=== PATIENT | female | born 1990 | race Caucasian/White ===

== ENCOUNTER 2023-10-01 20:47 | Outpatient (REF) | payer MEDICAID, SELFPAY ==
[2023-10-06 16:07] LABS: Age Gdln ACOG Testing Note (.); HPV Aptima Negative (Negative); IGP, Aptima HPV, rfx 16/18,45 Note (.)
== END 2023-10-01 20:48 | disposition home or self-care (01) ==
LOC: LAB 20:47
PROVIDERS: PCP Family Medicine; Visit Provider Obstetrics & Gynecology
DX: Z01.419 Encounter for gynecological examination (general) (routine) without abnormal findings (principal)
CPT/HCPCS: 87624; G0145

== ENCOUNTER 2023-10-08 12:54 | Outpatient (OUT) | payer MEDICAID, SELFPAY ==
--- NOTE | 2023-10-08 12:57 | US_ITS ---
The [address] [address] Patient Name: CLAUDIA CARVAJAL MRN: [id number] date: 1990 Sex: F Assigned Patient Location: [facility] Current Patient Location: [facility] Accession/Order Number: [id number] Exam Date: 10/08/2023 12:58 Report Date: 10/08/2023 15:59 At the request of: MELVA FONTANA Procedure: US pelvis w/ transvaginal EXAMINATION: US pelvis w/ transvaginal HISTORY: MENORRHAGIA, PELVIC PAIN COMPARISON: No relevant comparison available. FINDINGS: The uterus is normal in size, contour and myometrial echotexture measuring 8.8 x 3.7 x 5.8 cm, anteverted, anteflexed. Identified within the endometrial cavity is linear hyperechogenicity with ringdown artifact consistent with an IUD. The endometrium measures 6 mm, normal. The right ovary measures 3.6 x 1.7 x 3.8 cm. Normal color and Doppler flow The left ovary is normal measuring 4.3 x 2.4 x 3.9 cm. Normal color Doppler flow. Area of hypoechogenicity measuring 1.9 x 1.8 x 1.4 cm. Complex cyst versus endometrioma No free fluid US/US pelvis w/ transvaginal IMPRESSION: Normally positioned IUD Electronically authenticated by: ARAM ANSARI Date: 10/08/2023 15:59
--- OUTSIDE RECORDS SUMMARY | 2023-10-08 13:19 | XMS_ITS | CCD ---
Author Name Unknown Address [address] [place] [address] Organization [facility] Care Team Providers Care Yarn Wrapper Name Role Phone Neelam Singleton Unavailable DR NAZANIN BROWN Admitting Unavailable KEVIN, DR BACK Consulting Unavailable KEVIN, DR BCAK Attending Unavailable MISC, DR PLUMMER Primary Care Unavailable TRINIDADASICristopher, DR YIP Attending Unavailable MISC, DR PLUMMER Primary Care Unavailable MEREDITH, DR YIP Admitting Unavailable MEREDITH, DR YIP Consulting Unavailable MELVA FONTANA Attending Unavailable Allergies Allergy Classification Reported Allergen(s) Allergy Type Date of Onset Reaction(s) Facility (2 sources) Bacitracin / Neomycin / Polymyxin B; Translations: [Neosporin] Drug Allergy 08-18-2013 [facility] Repository Problems Active Problems Problem Classification Problem Date Documented Date Episodic/Chronic Immunizations and screening for infectious disease (2 sources) Contact with and (suspected) exposure to other viral communicable diseases; Translations: [Encounter for screening for human papillomavirus (HPV)] Onset: 05-02-2021 Resolved: 05-02-2021 Episodic Nausea and vomiting (3 sources) Nausea with vomiting, unspecified; Translations: [NAUSEA WITH VOMITING UNSPECIFIED] Onset: 05-11-2022 Episodic Noninfectious gastroenteritis (1 source) Noninfective gastroenteritis and colitis, unspecified; Translations: [NONINFECTIVE GE AND COLITIS UNS] Onset: 05-15-2022 Episodic Other screening for suspected conditions (not mental disorders or infectious disease) (4 sources) Encounter for screening for malignant neoplasm of cervix; Translations: [ENC SCREENING MALIG NEOPLASM CERV] Onset: 05-23-2022 Episodic Substance-related disorders (1 source) Nicotine dependence, cigarettes, uncomplicated; Translations: [NICOTINE DEPEND CIGARETTES UNCOMP] Onset: 05-15-2022 Chronic Past or Other Problems Problem Classification Problem Date Documented Da te Episodic/Chronic Other upper respiratory infections (1 source) Acute upper respiratory infection, unspecified; Translations: [Viral upper respiratory illness J06.9] Onset: 05-02-2021 Resolved: 05-02-2021 Episodic Results Test Name Value Interpretation Reference Range Facility PAP ACOG PANEL 2: 21 to 29on 05-29-2022 . . Normal [facility] Comment on above: Result Comment: Perf ormed at: BA Performed By: #### [id number] #### [facility] [address] [address] [address] Chi Melendrez Age Gdln ACOG Testing [facility] Comment on above: Performed By: #### [id number] #### [facility] [address] [place] [address] Dr. Chi Melendrez DIAGNOSIS: Comment [facility] Comment on above: Result Comment: NEGA TIVE FOR INTRAEPITHELIAL LESION OR MALIGNANCY. Performed at: BA Performed By: #### [id number] #### [facility] [address] [place] [address] Dr. Chi Melendrez Methodology: Comment [facility] Comment on above: Result Comment: This liquid based ThinPrep(R) pap test was screened with the use of an image guided system. Performed at: WB Performed By: #### [id number] #### [facility] [address] [place] [address] Dr. Chi Melendrez Note: Comment [facility] Comment on above: Result Comment: The Pap smear is a screening test designed to aid in the detection of premalignant and malignant conditions of the uterine cervix. It is not a diagnostic procedure and should not be used as the sole means of detecting cervical cancer. Both false-positive and false-negative reports do occur. . Performed at: WB Performed By: #### [id number] #### [facility] [address] [place] [address] Dr. Chi Melendrez Performed by: Comment Normal [facility] Comment on above: Result Comment: Cheo Nance, Sports Marketing Specialist (ASCP) Performed at: BA Performed By: #### [id number] #### [facility] [address] [place] [address] Dr. Chi Melendrez Reflex Criteria: Comment Normal [facility] Comment on above: Result Comment: The HPV DNA reflex criteria were not met with this specimen result therefore, no HPV testing was performed. . Performed at: BA Performed By: #### [id number] #### [facility] [address] [place] [address] Dr. Chi Melendrez Specimen adequacy: Comment Normal [facility] Comment on above: Result Comment: Sati sfactory for evaluation. Endocervical and/or squamous metaplastic cells (endocervical component) are present. Performed at: BA Performed By: #### [id number] #### [facility] [address] [place] [address] Dr. Chi Melendrez AMYLASEon 05-11-2022 Amylase [Catalytic activity/Vol] 72 U/L Normal 25-115 [facility] Comment on above: Performed By: #### C MP, CATHERINE, LIPA #### [facility] [address] [place] [address] Dr. Chi Melendrez CBC AUTO DIFFon 05-11-2022 BASO # 0.0 103/ul Normal 0.0-0.1 [facility] Comment on above: Performed By: #### C BC #### [facility] [address] [place] [address] Dr. Chi Melendrez Basophils/100 WBC (Bld) 0.3 % Normal 0.2-2.0 [facility] Comment on above: Performed By: #### C BC #### [facility] [address] [place] [address] Dr. Chi Melendrez EO # 0.0 103/ul Normal 0.0-0.7 [facility] Comment on above: Performed By: #### C BC #### [facility] [address] [place] [address] Dr. Chi Melendrez Eosinophils/100 WBC (Bld) 0.2 % Critically low 0.9-7.0 [facility] Comment on above: Performed By: #### C BC #### [facility] [address] [place] [address] Dr. Chi Melendrez Erythrocyte distribution width (RBC) [Ratio] 12.4 % Normal 11.0-15.0 [facility] Comment on above: Performed By: #### C BC #### [facility] [address] [place] [address] Dr. Chi Melendrez Hematocrit (Bld) [Volume fraction] 39.3 % Normal 36.0-48.0 [facility] Comment on above: Performed By: #### C BC #### [facility] [address] [place] [address] Dr. Chi Melendrez Hemoglobin (Bld) [Mass/Vol] 13.1 g/dL Normal 12.0-16.0 [facility] Comment on above: Performed By: #### C BC #### [facility] [address] [place] [address] Dr. Chi Melendrez IG # 0.03 10e3/ul Normal 0.00-0.03 [facility] Comment on above: Performed By: #### C BC #### [facility] [address] [place] [address] Dr. Chi Melendrez IG % 0.3 % Normal 0.0-0.5 [facility] Comment on above: Performed By: #### C BC #### [facility] [address] [place] [address] Dr. Chi Melendrez LYMPH # 1.3 103/ul Normal 1.2-3.8 [facility] Comment on above: Performed By: #### C BC #### [facility] [address] [place] [address] Dr. Chi Melendrez Lymphocytes/100 WBC (Bld) 10.5 % Critically low 20.5-60.0 [facility] Comment on above: Performed By: #### C BC #### [facility] [address] [place] [address] Dr. Chi Melendrez MANUAL DIFF REQ NO Normal [facility] Comment on above: Performed By: #### C BC #### [facility] [address] [place] [address] Dr. Chi Melendrez MCH (RBC) [Entitic mass] 29.8 pg Normal 26.7-34.0 [facility] Comment on above: Performed By: #### C BC #### [facility] [address] [address] [address] Chi Melendrez MCHC (RBC) [Mass/Vol] 33.3 g/dL Normal 29.9-35.2 [facility] Comment on above: Performed By: #### C BC #### [facility] [address] [place] [address] Dr. Chi Melendrez MCV (RBC) [Entitic vol] 89.5 fL Normal 81.0-99.0 [facility] Comment on above: Performed By: #### C BC #### [facility] [address] [place] [address] Dr. Chi Melendrez MONO # 0.6 103/ul Normal 0.3-0.8 [facility] Comment on above: Performed By: #### C BC #### [facility] [address] [place] [address] Dr. Chi Melendrez Monocytes/100 WBC (Bld) 4.6 % Normal 1.7-12.0 [facility] Comment on above: Performed By: #### C BC #### [facility] [address] [place] [address] Dr. Chi Melendrez NEUT # 10.0 103/ul Critically high 1.4-6.5 [facility] Comment on above: Performed By: #### C BC #### [facility] [address] [place] [address] Dr. Chi Melendrez Neutrophils/100 WBC (Bld) 84.1 % Critically high 43.0-75.0 [facility] Comment on above: Performed By: #### C BC #### [facility] [address] [place] [address] Dr. Chi Melendrez Platelet mean volume (Bld) [Entitic vol] 11.5 fL Normal 9.5-13.5 [facility] Comment on above: Performed By: #### C BC #### [facility] [address] [place] [address] Dr. Chi Melendrez PLT 268 103/ul Normal 150-450 [facility] Comment on above: Performed By: #### C BC #### [facility] [address] [place] [address] Dr. Chi Melendrez RBC 4.39 106/ul Normal 4.20-5.40 [facility] Comment on above: Performed By: #### C BC #### [facility] [address] [place] [address] Dr. Chi Melendrez WBC 11.9 103/ul Critically high 4.0-11.0 [facility] Comment on above: Performed By: #### C BC #### [facility] [address] [place] [address] Dr. Chi Melendrez LIPASEon 05-11-2022 Lipase [Catalytic activity/Vol] 101.0 U/L Normal 73.0-393.0 [facility] Comment on above: Performed By: #### C MP CATHERINE, LIPA #### [facility] [address] [place] [address] Dr. Chi Melendrez PROF 14(COMP METB)on 022 Albumin [Mass/Vol] 4.2 g/dL Normal 3.4-5.0 [facility] Comment on above: Performed By: #### C MP CATHERINE, LIPA #### [facility] [address] [place] [address] Dr. Chi Melendrez Albumin/Globulin [Mass ratio] 1.2 {ratio} Normal [facility] Comment on above: Performed By: #### C MP CATHERINE, LIPA #### [facility] [address] [place] [address] Dr. Chi Melendrez ALP [Catalytic activity/Vol] 67 U/L Normal 46-116 [facility] Comment on above: Performed By: #### C MP, CATHERINE, LIPA #### [facility] [address] [place] [address] Dr. Chi Melendrez ALT [Catalytic activity/Vol] 17 U/L Normal 14-59 [facility] Comment on above: Performed By: #### C MP CATHERINE, LIPA #### [facility] [address] [place] [address] Dr. Chi Melendrez Anion gap [Moles/Vol] 10.1 mmol/L Normal [facility] Comment on above: Performed By: #### C CATHERINE HYATT LIPA #### [facility] [address] [address] [address] Chi Melendrez AST [Catalytic activity/Vol] 13 U/L Critically low 15-37 [facility] Comment on above: Performed By: #### C CATHERINE HYATT LIPA #### [facility] [address] [address] [address] Chi Melendrez Bilirubin [Mass/Vol] 0.5 mg/dL Normal 0.2-1.0 [facility] Comment on above: Performed By: #### C CATHERINE HYATT LIPA #### [facility] [address] [address] [address] Chi Melendrez Calcium [Mass/Vol] 9.2 mg/dL Normal 8.5-10.1 [facility] Comment on above: Performed By: #### C CATHERINE HYATT LIPA #### [facility] [address] [address] [address] Chi Melendrez Chloride [Moles/Vol] 104 mmol/L Normal 98-107 [facility] Comment on above: Performed By: #### C CATHERINE HYATT LIPA #### [facility] [address] [address] [address] Chi Melendrez CO2 [Moles/Vol] 27.8 mmol/L Normal 21.0-32.0 [facility] Comment on above: Performed By: #### C CATHERINE HYATT, LIPA #### [facility] [address] [address] [address] Chi Melendrez Creatinine [Mass/Vol] 0.75 mg/dL Normal 0.55-1.02 [facility] Comment on above: Performed By: #### C CATHERINE HYATT, LIPA #### [facility] [address] [address] [address] Chi Melendrez EGFR-AF LIBYAN >60 Normal >=60 [facility] Comment on above: Performed By: #### C CATHERINE HYATT LIPA #### [facility] [address] [address] [address] Chi Melendrez EGFR-NON AF LIBYAN >60 Normal >=60 [facility] Comment on above: Performed By: #### C MP, CATHERINE, LIPA #### [facility] [address] [address] [address] Chi Melendrez Globulin (S) [Mass/Vol] 3.4 g/dL Normal [facility] Comment on above: Performed By: #### C MP, CATHERINE, LIPA #### [facility] [address] [address] [address] Chi Melendrez Glucose [Mass/Vol] 117 mg/dL Critically high 74-106 [facility] Comment on above: Performed By: #### C MP, CATHERINE, LIPA #### [facility] [address] [place] [address] Dr. Chi Melendrez Potassium [Moles/Vol] 3.9 mmol/L Normal 3.5-5.1 [facility] Comment on above: Performed By: #### C MP, CATHERINE, LIPA #### [facility] [address] [address] [address] Chi Melendrez Protein [Mass/Vol] 7.6 g/dL Normal 6.4-8.2 [facility] Comment on above: Performed By: #### C MP, CATHERINE, LIPA #### [facility] [address] [address] [address] Chi Melendrez Sodium [Moles/Vol] 138 mmol/L Normal 136-145 [facility] Comment on above: Performed By: #### C MP, CATHERINE, LIPA #### [facility] [address] [address] [address] Chi Melendrez Urea nitrogen [Mass/Vol] 16.0 mg/dL Normal 7.0-18.0 [facility] Comment on above: Performed By: #### C MP, CATHERINE, LIPA #### [facility] [address] [address] [address] Chi Melendrez Urea nitrogen/Creatini ne [Mass ratio] 21.3 mg/mg Normal [facility] Comment on above: Performed By: #### C CATHERINE HYATT LIPA #### [facility] [address] [address] [address] Chi ESTRELLA Quick Testingon 2020 Result Negative [facility] Other Vital Signs Date Time Vital Sign Value Performing Clinician Facility 05-02-2021 14:00-0400 Body height 157.48 cm Neelam Singleton Other [facility] Other 05-02-2021 14:00-0400 Body mass index (BMI) [Ratio] 24.69 kg/m2 Neelam Singleton Other [facility] Other 05-02-2021 14:00-0400 Body temperature 98.7 [degF] Neelam Singleton Other [facility] Other 05-02-2021 14:00-0400 Body weight 61.24 kg Neelam Singleton Other [facility] Other 05-02-2021 14:00-0400 SaO2% (BldA) [Mass fraction] 97 % Neelam Singleton Other [facility] Other Encounters Encounter Date Encounter Type Care Provider Facility Start: 09-03-2023 End: 09-03-2023 ambulatory MELVA FONTANA Not Available Start: 05-23-2022 End: 05-23-[address] PHI HARPER Facility:[facility] Start: 05-11-2022 End: 05-11-[address] NAZANIN BROWN Facility:[facility] Start: 05-02-2021 Office outpatient vi sit [address] [facility] Payers Date Payer Category Payer Unknown [id number] [id number] [id number] 1990 Unknown [id number] [id number] [id number] 1990 Unknown [id number] [id number] [id number] 1957 Medicaid [id number] Unknown [id number]. [id number] Social History Date Type Detail Facility Unknown if ever smoked [facility] Other Sex Assigned At Sex Assigned At Bir th [facility] Other Evaluation note 05-02-2021 Note Date & Type Note Facility 05-02-2021 Evaluation note Encounter Date Diagnosis Assessment Notes Apr, Contact with and (suspected) exposure to other viral communicable diseases (ICD-10 - Z20.828) Apr, Viral upper respiratory illness (ICD-10 - J06.9) Viral upper respiratory infection: adult home care material was printed. Drink plenty of fluids, get plenty of rest. Take Tylenol or Motrin as needed for aches pains or fevers. Off work today and tomorrow. Follow-up with your family physician if no improvement in 2 to 3 days. Apr, Other Additional time spent conducting pre-visit phone call, screening for symptoms, instructions on social distancing, application and removal of PPE, and cleaning of examination room, equipment and supplies was preformed. Patient education given for testing methodology and results. Patient care instructions given in writting by [facility] At [facility] document. [facility] Other History general Narrative - Reported Note Date & Type Note Facility History general Narrative - Reported Type Medical History Childbirth X1 Surgical History tonsillectomy [facility] Other Summary Purpose Family History No Family History Records FoundNo Family History Records Found Advance Directives No Advanced Directives Records FoundNo Advanced Directives Records Found Additional Source Comments REASON FOR VISIT (unrecogniz ed section and content) #17 SORE THROAT, COUGH, CHES T CONGESTION, FEVER, NO MASK, COVID Provider Visit INFORMATION SOURCE (unrecogn ized section and content) DATE CREATED AUTHOR 05/30/2022 [facility] DATE CREATED AUTHOR AUTHOR'S ORGANYANDY ATFREDDIE 09/04/2023 [facility] EPIC FOR RECORDS PERTAINING TO PATIENTS WHO ARE OR HAVE BEEN ENROLLED IN A CHEMICAL DEPENDENCY/SUBSTANCEABUSE PROGRAM, SOME INFORMATION MAY BE OMITTED. This clinical summary was aggregated from multiple sources. Caution should be exercised in using it in the provision of clinical care. This summary normalizes information from multiple sources, and as a consequence, information in this document may materially change the coding, format and clinical context of patient data. In addition, data may be omitted in some cases. CLINICAL DECISIONS SHOULD BE BASED ON THE PRIMARY CLINICAL RECORDS. [facility] [employer] [facility]. provides no warranty or guarantee of the accuracy or completeness of information in this document.
== END 2023-10-08 12:55 | disposition home or self-care (01) ==
LOC: NOMS 12:55
PROVIDERS: PCP Family Medicine; Visit Provider Obstetrics & Gynecology
DX: N92.0 Excessive and frequent menstruation with regular cycle (principal); Z97.5 Presence of (intrauterine) contraceptive device
CPT/HCPCS: 76830; 76856

== ENCOUNTER 2023-10-17 15:36 | Outpatient (REF) | payer MEDICAID, SELFPAY ==
--- OUTSIDE RECORDS SUMMARY | 2023-10-21 15:51 | XMS_ITS | CCD ---
Author Name Unknown Address [address] [place] [address] Organization [facility] Care Team Providers Care Bridge Maintainer Name Role Phone Neelam Singleton Unavailable KEVIN, DR BACK Admitting Unavailable HAY, DR BACK Consulting Unavailable HAY, DR BACK Attending Unavailable MISC, DR PLUMMER Primary Care Unavailable KARASIK, DR YIP Attending Unavailable MISC, DR PLUMMER Primary Care Unavailable KARASIK, DR YIP Admitting Unavailable KARASICristopher, DR YIP Consulting Unavailable MEEMERON PIZARROY Attending Unavailable MEEMELVA Nieto Attending Unavailable MEE, MELVA Attending Unavailable MeeMerony Admitting Unavailable MeeMelva nieto Attending Unavailable DefHeriberto gustafson Primary Care Unavailable Allergies Allergy Classification Reported Allergen(s) Allergy Type Date of Onset Reaction(s) Facility (2 sources) Bacitracin / Neomycin / Polymyxin B; Translations: [Neosporin] Drug Allergy 08-18-2013 [facility] Repository (1 source) Bacitracin Drug Allergy 06-13-2021 [facility] Repository (1 source) Neomycin Drug Allergy 06-13-2021 [facility] Repository (1 source) polymyxin B Drug allergy (disorder) 06-13-2021 [facility] Repository Problems Active Problems Problem Classification Problem [...] 2: 23 to 29on 05-29-2022 . . [facility] Comment on above: Result Comment: Perf ormed at: BA Performed By: #### [id number] #### [facility] [address] [place] [address] Dr. Chi Melendrez Age Gdln ACOG Testing [facility] Comment on above: Performed By: #### [id number] #### [facility] [address] [address] [address] Chi Melendrez DIAGNOSIS: Comment [facility] Comment on above: Result Comment: NEGA TIVE FOR INTRAEPITHELIAL LESION OR MALIGNANCY. Performed at: BA Performed By: #### [id number] #### [facility] [address] [address] [address] Chi Melendrez Methodology: Comment [facility] Comment on above: Result Comment: This liquid based ThinPrep(R) pap test was screened with the use of an image guided system. Performed at: WB Performed By: #### [id number] #### [facility] [address] [address] [address] Chi Melendrez Note: Comment [facility] Comment on above: Result Comment: The Pap smear is a screening test designed to aid in the detection of premalignant and malignant conditions of the uterine cervix. It is not a diagnostic procedure and should not be used as the sole means of detecting cervical cancer. Both false-positive and false-negative reports do occur. . Performed at: WB Performed By: #### [id number] #### [facility] [address] [place] [address] Dr. Chi Melendrez Performed by: Comment Normal [facility] Comment on above: Result Comment: Cheo Nance, Outside Rigger (ASCP) Performed at: BA Performed By: #### [id number] #### [facility] [address] [place] [address] Dr. Chi Melendrez Reflex Criteria: Comment Normal [facility] Comment on above: Result Comment: The HPV DNA reflex criteria were not met with this specimen result therefore, no HPV testing was performed. . Performed at: BA Performed By: #### [id number] #### [facility] [address] [place] [address] Dr. Chi Melendrez Specimen adequacy: Comment [facility] Comment on above: Result Comment: Sati sfactory for evaluation. Endocervical and/or squamous metaplastic cells (endocervical component) are present. Performed at: BA Performed By: #### [id number] #### [facility] [address] [place] [address] Dr. Chi Melendrez AMYLASEon 05-11-2022 Amylase [Catalytic activity/Vol] 72 U/L Normal 25-115 [facility] Comment on above: Performed By: #### C MP, CTAHERINE, LIPA #### [facility] [address] [place] [address] Dr. Chi Melendrez CBC AUTO DIFFon 05-11-2022 BASO # 0.0 103/ul Normal 0.0-0.1 [facility] Comment on above: Performed By: #### C BC #### [facility] [address] [place] [address] Dr. Chi Melendrez Basophils/100 WBC (Bld) 0.3 % Normal 0.2-2.0 [facility] Comment on above: Performed By: #### C BC #### [facility] [address] [place] [address] Dr. Chi Melendrez EO # 0.0 103/ul Normal 0.0-0.7 [facility] Comment on above: Performed By: #### C BC #### [facility] [address] [place] [address] Dr. Chi Melendrez Eosinophils/100 WBC (Bld) 0.2 % Critically low 0.9-7.0 [facility] Comment on above: Performed By: #### C BC #### [facility] [address] [place] [address] Dr. Chi Melendrez Erythrocyte distribution width (RBC) [Ratio] 12.4 % Normal 11.0-15.0 [facility] Comment on above: Performed By: #### C BC #### [facility] [address] [place] [address] Dr. Chi Melendrez Hematocrit (Bld) [Volume fraction] 39.3 % Normal 36.0-48.0 [facility] Comment on above: Performed By: #### C BC #### [facility] [address] [place] [address] Dr. Chi Melendrez Hemoglobin (Bld) [Mass/Vol] 13.1 g/dL Normal 12.0-16.0 [facility] Comment on above: Performed By: #### C BC #### [facility] [address] [place] [address] Dr. Chi Melendrez IG # 0.03 10e3/ul Normal 0.00-0.03 [facility] Comment on above: Performed By: #### C BC #### [facility] [address] [place] [address] Dr. Chi Melendrez IG % 0.3 % Normal 0.0-0.5 [facility] Comment on above: Performed By: #### C BC #### [facility] [address] [place] [address] Dr. Chi Melendrez LYMPH # 1.3 103/ul Normal 1.2-3.8 [facility] Comment on above: Performed By: #### C BC #### [facility] [address] [place] [address] Dr. Chi Melendrez Lymphocytes/100 WBC (Bld) 10.5 % Critically low 20.5-60.0 [facility] Comment on above: Performed By: #### C BC #### [facility] [address] [place] [address] Dr. Chi Melendrez MANUAL DIFF REQ NO Normal [facility] Comment on above: Performed By: #### C BC #### [facility] [address] [place] [address] Dr. Chi Melendrez MCH (RBC) [Entitic mass] 29.8 pg Normal 26.7-34.0 [facility] Comment on above: Performed By: #### C BC #### [facility] [address] [place] [address] Dr. Chi Melendrez MCHC (RBC) [Mass/Vol] 33.3 g/dL Normal 29.9-35.2 [facility] Comment on above: Performed By: #### C BC #### [facility] [address] [place] [address] Dr. Chi Melendrez MCV (RBC) [Entitic vol] 89.5 fL Normal 81.0-99.0 [facility] Comment on above: Performed By: #### C BC #### [facility] [address] [place] [address] Dr. Chi Melendrez MONO # 0.6 103/ul Normal 0.3-0.8 [facility] Comment on above: Performed By: #### C BC #### [facility] [address] [place] [address] Dr. Chi Melendrez Monocytes/100 WBC (Bld) 4.6 % Normal 1.7-12.0 [facility] Comment on above: Performed By: #### C BC #### [facility] [address] [place] [address] Dr. Chi Melendrez NEUT # 10.0 103/ul Critically high 1.4-6.5 [facility] Comment on above: Performed By: #### C BC #### [facility] [address] [place] [address] Dr. Chi Melendrez Neutrophils/100 WBC (Bld) 84.1 % Critically high 43.0-75.0 [facility] Comment on above: Performed By: #### C BC #### [facility] [address] [place] [address] Dr. Chi Melendrez Platelet mean volume (Bld) [Entitic vol] 11.5 fL Normal 9.5-13.5 [facility] Comment on above: Performed By: #### C BC #### [facility] [address] [place] [address] Dr. Chi Melendrez PLT 268 103/ul Normal 150-450 [facility] Comment on above: Performed By: #### C BC #### [facility] [address] [place] [address] Dr. Chi Melendrez RBC 4.39 106/ul Normal 4.20-5.40 [facility] Comment on above: Performed By: #### C BC #### [facility] [address] [place] [address] Dr. Chi Melendrez WBC 11.9 103/ul Critically high 4.0-11.0 [facility] Comment on above: Performed By: #### C BC #### [facility] [address] [place] [address] Dr. Chi Melendrez LIPASEon 05-11-2022 Lipase [Catalytic activity/Vol] 101.0 U/L Normal 73.0-393.0 [facility] Comment on above: Performed By: #### C MP CATHERINE, LIPA #### [facility] [address] [place] [address] Dr. Chi Melendrez PROF 14(COMP METB)on 022 Albumin [Mass/Vol] 4.2 g/dL Normal 3.4-5.0 [facility] Comment on above: Performed By: #### C MP CATHERINE, LIPA #### [facility] [address] [place] [address] Dr. Chi Melendrez Albumin/Globulin [Mass ratio] 1.2 {ratio} Normal [facility] Comment on above: Performed By: #### C MP CATHERINE, LIPA #### [facility] [address] [place] [address] Dr. Chi Melendrez ALP [Catalytic activity/Vol] 67 U/L Normal 46-116 [facility] Comment on above: Performed By: #### C MP, CATHERINE, LIPA #### [facility] [address] [address] [address] Chi Melendrez ALT [Catalytic activity/Vol] 17 U/L Normal 14-59 [facility] Comment on above: Performed By: #### C MP, CATHERINE, LIPA #### [facility] [address] [address] [address] Chi Melendrez Anion gap [Moles/Vol] 10.1 mmol/L Normal [facility] Comment on above: Performed By: #### C MP, CATHERINE, LIPA #### [facility] [address] [place] [address] Dr. Chi Melendrez AST [Catalytic activity/Vol] 13 U/L Critically low 15-37 [facility] Comment on above: Performed By: #### C MP CATHERINE, LIPA #### [facility] [address] [place] [address] Dr. Chi Melendrez Bilirubin [Mass/Vol] 0.5 mg/dL Normal 0.2-1.0 [facility] Comment on above: Performed By: #### C EDMAR CATHERINE, LIPA #### [facility] [address] [place] [address] Dr. Cih Melendrez Calcium [Mass/Vol] 9.2 mg/dL Normal 8.5-10.1 [facility] Comment on above: Performed By: #### C MP, CATHERINE, LIPA #### [facility] [address] [place] [address] Dr. Chi Melendrez Chloride [Moles/Vol] 104 mmol/L Normal 98-107 [facility] Comment on above: Performed By: #### C MP, CATHERINE, LIPA #### [facility] [address] [place] [address] Dr. Chi Melendrez CO2 [Moles/Vol] 27.8 mmol/L Normal 21.0-32.0 [facility] Comment on above: Performed By: #### C MP, CATHERINE, LIPA #### [facility] [address] [place] [address] Dr. Chi Melendrez Creatinine [Mass/Vol] 0.75 mg/dL Normal 0.55-1.02 [facility] Comment on above: Performed By: #### C CATHERINE HYATT LIPA #### [facility] [address] [address] [address] Chi Melendrez EGFR-AF [place]ER >60 Normal >=60 [facility] Comment on above: Performed By: #### C CATHERINE HYATT LIPA #### [facility] [address] [address] [address] Chi Melendrez EGFR-NON AF [place] >60 Normal >=60 [facility] Comment on above: Performed By: #### C CATHERINE HYATT LIPA #### [facility] [address] [address] [address] Chi Melendrez Globulin (S) [Mass/Vol] 3.4 g/dL Normal [facility] Comment on above: Performed By: #### C CATHERINE HYATT LIPA #### [facility] [address] [place] [address] Dr. Chi Melendrez Glucose [Mass/Vol] 117 mg/dL Critically high 74-106 [facility] Comment on above: Performed By: #### C CATHERINE HYATT LIPA #### [facility] [address] [address] [address] Chi Melendrez Potassium [Moles/Vol] 3.9 mmol/L Normal 3.5-5.1 [facility] Comment on above: Performed By: #### C CATHERINE HYATT LIPA #### [facility] [address] [place] [address] Dr. Chi Melendrez Protein [Mass/Vol] 7.6 g/dL Normal 6.4-8.2 [facility] Comment on above: Performed By: #### C CATHERINE HYATT LIPA #### [facility] [address] [address] [address] Chi Melendrez Sodium [Moles/Vol] 138 mmol/L Normal 136-145 [facility] Comment on above: Performed By: #### C CATHERINE HYATT LIPA #### [facility] [address] [address] [address] Chi Melendrez Urea nitrogen [Mass/Vol] 16.0 mg/dL Normal 7.0-18.0 [facility] Comment on above: Performed By: #### C CATHERINE HYATT LIPA #### [facility] [address] [place], [place] [address] Dr. Chi Melendrez Urea nitrogen/Creatini ne [Mass ratio] 21.3 mg/mg Normal [facility] Comment on above: Performed By: #### C CATHERINE HYATT LIPA #### [facility] [address] [place], [place] [address] Dr. Chi Melendrez COVID Quick Testingon 2020 Result Negative [facility] Other Vital Signs Date Time Vital Sign Value Performing Clinician Facility 05-02-2021 14:00-0400 Body height 157.48 cm Neelam Singleton Other [facility] Other 05-02-2021 14:00-0400 Body mass index (BMI) [Ratio] 24.69 kg/m2 Neelam Singleton Other [facility] Other 05-02-2021 14:00-0400 Body temperature 98.7 [degF] Neelam Singleton Other [facility] Other 05-02-2021 14:00-0400 Body weight 61.24 kg Neelam Singleton Other [facility] Other 05-02-2021 14:00-0400 SaO2% (BldA) [Mass fraction] 97 % Neelam Singleton Other [facility] Other Encounters Encounter Date Encounter Type Care Provider Facility Start: 10-17-2023 End: 10-17-2023 ambulatory Melva Caban Facility:[facility] Start: 10-17-2023 End: 10-17-2023 ambulatory MELVA MEE Not Available Start: 10-01-2023 End: 10-01-2023 ambulatory MELVA MEE Not Available Start: 09-03-2023 End: 09-03-2023 ambulatory MELVA MEE Not Available Start: 05-23-2022 End: 05-23-[address] PHI HARPER Facility:[facility] Start: 05-11-2022 End: 05-11-[address] NAZANIN BROWN Facility:[facility] Start: 05-02-2021 Office outpatient vi sit 15 minutes Neelam Singleton [facility] Payers Date Payer Category Payer Self-pay 1992 Unknown [id number] 2.16.84 [id number] 1992 Unknown [id number] 2.16.84 [id number] 1992 Unknown [id number] 2.16.84 [id number] 1992 Unknown [id number] 2.16.84 [id number] 1992 Unknown [id number] 2.16.84 [id number] 1957 Medicaid [id number] Unknown [id number] [id number]. [id number] Social History Date Type Detail Facility Unknown if ever smoked [facility] Other Sex Assigned At Sex Assigned At Bir th [facility] Other Evaluation note 05-02-2021 Note Date & [...] Patient care instructions given in writting by [facility] document. [facility] Other History general Narrative - Reported Note Date & Type Note Facility History general Narrative - Reported Type Medical History Childbirth X1 Surgical History tonsillectomy [facility] Other Summary Purpose Family History No Family History Records FoundNo Family History Records FoundNo Family History Records Found Advance Directives No Advanced Directives Records FoundNo Advanced Directives Records FoundNo Advanced Directives Records Found Additional Source Comments REASON FOR VISIT (unrecogniz ed section and content) #17 SORE THROAT, COUGH, CHES T CONGESTION, FEVER, NO MASK, COVID Provider Visit INFORMATION SOURCE (unrecogn ized section and content) DATE CREATED AUTHOR 05/30/2022 [facility] DATE CREATED AUTHOR AUTHOR'S ORGANIZ ATION 10/18/2023 [facility] EPIC DATE CREATED AUTHOR AUTHOR'S ORGANIZ ATION 10/19/2023 [facility] FOR RECORDS PERTAINING TO PATIENTS WHO ARE [...] BE BASED ON THE PRIMARY CLINICAL RECORDS. [employer] provides no warranty or guarantee of the accuracy or completeness of information in this document.
== END 2023-10-17 15:37 | disposition home or self-care (01) ==
LOC: LAB 15:36
PROVIDERS: PCP Family Medicine; Visit Provider Obstetrics & Gynecology
DX: N92.0 Excessive and frequent menstruation with regular cycle (principal)
CPT/HCPCS: 88305

== ENCOUNTER 2023-11-12 10:51 | Outpatient (OUT) | payer MEDICAID, SELFPAY ==
--- OUTSIDE RECORDS SUMMARY | 2023-11-12 11:06 | XMS_ITS | CCD ---
Author Organization [facility] Care Team Providers Care Kitchen Hand Name Role Phone Neelam Singleton Unavailable DR NAZANIN BROWN Admitting Unavailable HAY, DR BACK Consulting Unavailable HAY, DR BACK Attending Unavailable MISC, DR PLUMMER Primary Care Unavailable KARASIK, DR YIP Attending Unavailable MISC, DR PLUMMER Primary Care Unavailable KARASIK, DR YIP Admitting Unavailable KARASIK, DR YIP Consulting Unavailable MELVA CABAN Attending Unavailable MELVA CABAN Attending Unavailable MELVA CABAN Attending Unavailable Heriberto Torres Primary Care Unavailable Melva Caban Attending Unavailable Melva Caban Admitting Unavailable MD Heriberto Torres Primary Care Provider Melva Caban Attending Provider Allergies Allergy Classification Reported Allergen(s) Allergy Type Date of Onset Reaction(s) Facility (2 sources) Bacitracin / Neomycin / Polymyxin B; Translations: [Neosporin] Drug Allergy 08-18-[address] [facility] Repository (2 sources) Bacitracin Drug Allergy 06-13-2021 [facility] Repository (2 sources) Neomycin Drug Allergy 06-13-2021 [facility] Repository (2 sources) polymyxin B Drug allergy (disorder) 06-13-2021 [facility] Repository Problems Active Problems Problem Classification [...] Test Name Value Interpretation Reference Range Facility [facility] 10-17-2023 L Specimen: [id number] Received: 10/18/23 Status: JUWAN Aquino Num: [id number] Spec Type: Surgical Subm Dr: Melva Caban Tissues: A Endometrium - Biopsy (EMBX) Procedures: HE/2, Gross/Micro L4 Age/ Patient Sex Location Account Attending Physician AbdielAna 33/F LABELL [id number] Melva Caban SPEC NUM: [id number] RECD: 10/18/23 STATUS: JUWAN AQUINO NUM: [id number] FIDEL: 10/17/23- SUBM DR: Melva Caban ENTERED: 10/18/23-[address]: Tosin,Lab SPEC TYPE: Surgical DEPT: ROSEANNE RAMSAY ORDERED: HE/2, Gross/Micro L4 ORDERED: HE/2, Gross/Micro L4 Pathological Diagnosis Endometrium, Curettage: Secretory Endometrium. Clinical Information Menorrhagia Gross Description Received in formalin labeled with the patient's name, date of and endo BX per requisition is a 2.5 x 1.2 x 0.3 cm aggregate of luu-red tissue. Entirely submitted in one cassette labeled A1. CPT Codes 70857 -------- -------- Specimen: [id number] Received: 10/18/23-123 Status: JUWAN Cardyamileth Num: [id number] Spec Type: Surgical Subm Dr: Melva Caban Tissues: A Endometrium - Biopsy (EMBX) Procedures: HE/2, Gross/Micro L4 -------- Patient: Ana Meadows [id number] (Continued) -------- Signed (signature on file) Keo Hamm MD 10/21/23 1223 [facility] PAP ACOG PANEL 2: 21 to 29on 05-29-2022 . . Normal [facility] Comment on above: Result Comment: Perf ormed at: BA Performed By: #### [id number] #### [facility] [address] [place] [address] Dr. Chi Melendrez Age Gdln ACOG Testing 21-29 Normal [facility] Comment on above: Performed By: #### [id number] #### [facility] [address] [place] [address] Dr. Chi Melendrez DIAGNOSIS: Comment Normal [facility] Comment on above: Result Comment: NEGA TIVE FOR INTRAEPITHELIAL LESION OR MALIGNANCY. Performed at: BA Performed By: #### [id number] #### [facility] [address] [place] [address] Dr. Chi Melendrez Methodology: Comment Normal [facility] Comment on above: Result Comment: This liquid based ThinPrep(R) pap test was screened with the use of an image guided system. Performed at: WB Performed By: #### [id number] #### [facility] [address] [place] [address] Dr. Chi Melendrez Note: Comment Normal [facility] Comment on above: Result Comment: The Pap smear is a screening test designed to aid in the detection of premalignant and malignant conditions of the uterine cervix. It is not a diagnostic procedure and should not be used as the sole means of detecting cervical cancer. Both false-positive and false-negative reports do occur. . Performed at: WB Performed By: #### [id number] #### [facility] [address] [place] [address] Dr. Chi Melendrez Performed by: Comment Normal [facility] Comment on above: Result Comment: Cheo Nance Sweet Dough Mixer (ASCP) Performed at: BA Performed By: #### [id number] #### [facility] [address] [place] [address] Dr. Chi Melendrez Reflex Criteria: Comment [facility] Comment on above: Result Comment: The HPV DNA reflex criteria were not met with this specimen result therefore, no HPV testing was performed. . Performed at: BA Performed By: #### [id number] #### [facility] [address] [place] [address] Dr. Chi Melendrez Specimen adequacy: Comment Normal [facility] Comment on above: Result Comment: Sati sfactory for evaluation. Endocervical and/or squamous metaplastic cells (endocervical component) are present. Performed at: BA Performed By: #### [id number] #### [facility] [address] [place] [address] Dr. Chi Melendrez AMYLASEon 05-11-2022 Amylase [Catalytic activity/Vol] 72 U/L Normal 25-[address] [facility] Comment on above: Performed By: #### C MP, CATHERINE, LIPA #### [facility] [address] [place] [address] Dr. Chi Melendrez CBC AUTO DIFFon 05-11-2022 BASO # 0.0 103/ul Normal 0.0-0.[address] [facility] Comment on above: Performed By: #### C BC #### [facility] [address] [place] [address] Dr. Chi Melendrez Basophils/100 WBC (Bld) 0.3 % Normal 0.2-2.0 [facility] Comment on above: Performed By: #### C BC #### [facility] [address] [place] [address] Dr. Chi Melendrez EO # 0.0 103/ul Normal 0.0-0.[address] [facility] Comment on above: Performed By: #### C BC #### [facility] [address] [place] [address] Dr. Chi Melendrez Eosinophils/100 WBC (Bld) 0.2 % Critically low 0.9-7.[address] [facility] Comment on above: Performed By: #### C BC #### [facility] [address] [place] [address] Dr. Chi Melendrez Erythrocyte distribution width (RBC) [Ratio] 12.4 % Normal 11.0-15.[address] [facility] Comment on above: Performed By: #### C BC #### [facility] [address] [place] [address] Dr. Chi Melendrez Hematocrit (Bld) [Volume fraction] 39.3 % Normal 36.0-48.0 [facility] Comment on above: Performed By: #### C BC #### [facility] [address] [place] [address] Dr. Chi Melendrez Hemoglobin (Bld) [Mass/Vol] 13.1 g/dL Normal 12.0-16.[address] [facility] Comment on above: Performed By: #### C BC #### [facility] [address] [place] [address] Dr. Chi Melendrez IG # 0.03 10e3/ul Normal 0.00-0.03 [facility] Comment on above: Performed By: #### C BC #### [facility] [address] [place] [address] Dr. Chi Melendrez IG % 0.3 % Normal 0.0-0.5 [facility] Comment on above: Performed By: #### C BC #### [facility] [address] [place] [address] Dr. Chi Melendrez LYMPH # 1.3 103/ul Normal 1.2-3.[address] [facility] Comment on above: Performed By: #### C BC #### [facility] [address] [place] [address] Dr. Chi Melendrez Lymphocytes/100 WBC (Bld) 10.5 % Critically low 20.5-60.[address] [facility] Comment on above: Performed By: #### C BC #### [facility] [address] [place] [address] Dr. Chi Melendrez MANUAL DIFF REQ NO Normal [facility] Comment on above: Performed By: #### C BC #### [facility] [address] [place] [address] Dr. Chi Melendrez MCH (RBC) [Entitic mass] 29.8 pg Normal 26.7-34.[address] [facility] Comment on above: Performed By: #### C BC #### [facility] [address] [place] [address] Dr. Chi Melendrez MCHC (RBC) [Mass/Vol] 33.3 g/dL Normal 29.9-35.[address] [facility] Comment on above: Performed By: #### C BC #### [facility] [address] [place] [address] Dr. Chi Melendrez MCV (RBC) [Entitic vol] 89.5 fL Normal 81.0-99.0 [facility] Comment on above: Performed By: #### C BC #### [facility] [address] [place] [address] Dr. Chi Melendrez MONO # 0.6 103/ul Normal 0.3-0.8 [facility] Comment on above: Performed By: #### C BC #### [facility] [address] [place] [address] Dr. Chi Melendrez Monocytes/100 WBC (Bld) 4.6 % Normal 1.7-12.0 [facility] Comment on above: Performed By: #### C BC #### [facility] [address] [place] [address] Dr. Chi Melendrez NEUT # 10.0 103/ul Critically high 1.4-6.5 [facility] Comment on above: Performed By: #### C BC #### [facility] [address] [place] [address] Dr. Chi Melendrez Neutrophils/100 WBC (Bld) 84.1 % Critically high 43.0-75.0 [facility] Comment on above: Performed By: #### C BC #### [facility] [address] [place] [address] Dr. Chi Melendrez Platelet mean volume (Bld) [Entitic vol] 11.5 fL Normal 9.5-13.[address] [facility] Comment on above: Performed By: #### C BC #### [facility] [address] [place] [address] Dr. Chi Melendrez PLT 268 103/ul Normal 150-[address] [facility] Comment on above: Performed By: #### C BC #### [facility] [address] [place] [address] Dr. Chi Melendrez RBC 4.39 106/ul Normal 4.20-5.[address] [facility] Comment on above: Performed By: #### C BC #### [facility] [address] [place] [address] Dr. Chi Melendrez WBC 11.9 103/ul Critically high 4.0-11.0 [facility] Comment on above: Performed By: #### C BC #### [facility] [address] [place] [address] Dr. Chi Melendrez LIPASEon 05-11-2022 Lipase [Catalytic activity/Vol] 101.0 U/L Normal 73.0-393.[address] [facility] Comment on above: Performed By: #### C MP, CATHERINE, LIPA #### [facility] [address] [place] [address] Dr. Chi Melendrez PROF 14(COMP METB)on 022 Albumin [Mass/Vol] 4.2 g/dL Normal 3.4-5.0 [facility] Comment on above: Performed By: #### C MP CATHERINE, LIPA #### [facility] [address] [place] [address] Dr. Chi Melendrez Albumin/Globulin [Mass ratio] 1.2 {ratio} Normal [facility] Comment on above: Performed By: #### C MP, CATHERINE, LIPA #### [facility] [address] [place] [address] Dr. Chi Melendrez ALP [Catalytic activity/Vol] 67 U/L Normal 46-[address] [facility] Comment on above: Performed By: #### C MP, CATHERINE, LIPA #### [facility] [address] [place] [address] Dr. Chi Melendrez ALT [Catalytic activity/Vol] 17 U/L Normal 14-[address] [facility] Comment on above: Performed By: #### C MP, CATHERINE, LIPA #### [facility] [address] [place] [address] Dr. Chi Melendrez Anion gap [Moles/Vol] 10.1 mmol/L Normal [facility] Comment on above: Performed By: #### C MP, CATHERINE, LIPA #### [facility] [address] [place] [address] Dr. Chi Melendrez AST [Catalytic activity/Vol] 13 U/L Critically low 15-[address] [facility] Comment on above: Performed By: #### C MP, CATHERINE, LIPA #### [facility] [address] [address] [address] Chi Melendrez Bilirubin [Mass/Vol] 0.5 mg/dL Normal 0.2-1.[address] [facility] Comment on above: Performed By: #### C MP, CATHERINE, LIPA #### [facility] [address] [address] [address] Chi Melendrez Calcium [Mass/Vol] 9.2 mg/dL Normal 8.5-10.[address] [facility] Comment on above: Performed By: #### C MP, CATHERINE, LIPA #### [facility] [address] [place] [address] Dr. Chi Melendrez Chloride [Moles/Vol] 104 mmol/L Normal 98-[address] [facility] Comment on above: Performed By: #### C MP, CATHERINE, LIPA #### [facility] [address] [place] [address] Dr. Chi Melendrez CO2 [Moles/Vol] 27.8 mmol/L Normal 21.0-32.0 [facility] Comment on above: Performed By: #### C MP, CATHERINE, LIPA #### [facility] [address] [address] [address] Chi Melendrez Creatinine [Mass/Vol] 0.75 mg/dL Normal 0.55-1.02 [facility] Comment on above: Performed By: #### C MP, CATHERINE, LIPA #### [facility] [address] [place] [address] Dr. Chi Melendrez EGFR-AF PARAGUAYAN >60 Normal >=60 [facility] Comment on above: Performed By: #### C MP, CATHERINE, LIPA #### [facility] [address] [place] [address] Dr. Chi Melendrez EGFR-NON AF PARAGUAYAN >60 Normal >=[address] [facility] Comment on above: Performed By: #### C MP, CATHERINE, LIPA #### [facility] [address] [place] [address] Dr. Chi Melendrez Globulin (S) [Mass/Vol] 3.4 g/dL Normal [facility] Comment on above: Performed By: #### C CATHERINE HYATT, LIPA #### [facility] [address] [place] [address] Dr. Chi Melendrez Glucose [Mass/Vol] 117 mg/dL Critically high 74-106 [facility] Comment on above: Performed By: #### C CATHERINE HYATT, LIPA #### [facility] [address] [place] [address] Dr. Chi Melendrez Potassium [Moles/Vol] 3.9 mmol/L Normal 3.5-5.1 [facility] Comment on above: Performed By: #### C CATHERINE HYATT, LIPA #### [facility] [address] [place] [address] Dr. Chi Melendrez Protein [Mass/Vol] 7.6 g/dL Normal 6.4-8.2 [facility] Comment on above: Performed By: #### C CATHERINE HYATT, LIPA #### [facility] [address] [place] [address] Dr. Chi Melendrez Sodium [Moles/Vol] 138 mmol/L Normal 136-[address] [facility] Comment on above: Performed By: #### C CATHERINE HYATT, LIPA #### [facility] [address] [place] [address] Dr. Chi Melendrez Urea nitrogen [Mass/Vol] 16.0 mg/dL Normal 7.0-18.0 [facility] Comment on above: Performed By: #### C CATHERINE HYATT LIPA #### [facility] [address] [place] [address] Dr. Chi Melendrez Urea nitrogen/Creatini ne [Mass ratio] 21.3 mg/mg Normal [facility] Comment on above: Performed By: #### C CATHERINE HYATT LIPA #### [facility] [address] [place] [address] Dr. Chi Melendrez COVID Quick Testingon 2020 Result Negative [facility] Other Vital Signs Date Time Vital Sign Value Performing Clinician Facility 05-02-2021 14:00-0400 Body height 157.48 cm Neelam Singleton Other [facility] Other 05-02-2021 14:00-0400 Body mass index (BMI) [Ratio] 24.69 kg/m2 Neelam Singleton Other [facility] Other 05-02-2021 14:00-0400 Body temperature 98.7 [degF] Neelam Areli Other [facility] Other 05-02-2021 14:00-0400 Body weight 61.24 kg Neelam Singleton Other [facility] Other 05-02-2021 14:00-0400 SaO2% (BldA) [Mass fraction] 97 % Neelam Areli Other [facility] Other Encounters Encounter Date Encounter Type Care Provider Facility Start: 10-17-2023 End: 10-17-2023 ambulatory Heriberto Torres Facility:[facility] Start: 10-17-2023 End: 10-17-2023 Departed Referred MD Heriberto Torres Work Phone: [facility] Start: 10-17-2023 End: 10-17-2023 ambulatory MELVA ADDI Not Available Start: 10-01-2023 End: 10-01-2023 ambulatory MELVA ADDI Not Available Start: 09-03-2023 End: 09-03-2023 ambulatory MELVA ADDI Not Available Start: 05-23-2022 End: 05-23-[address] PHI HARPER Facility:[facility] Start: 05-11-2022 End: 05-11-[address] NAZANIN BROWN Facility:[facility] Start: 05-02-2021 Office outpatient vi sit 15 minutes Neelam Singleton [facility] Payers Date Payer Category Payer Self-pay 1990 Unknown [id number] 2.16.84 [id number] 1990 Unknown [id number] 2.16.84 [id number] 1992 Unknown [id number] 2.16.84 [id number] 1992 Unknown [id number] 2.16.84 [id number] 1992 Unknown [id number] 2.16.84 [id number] 1957 Medicaid [id number] Unknown [id number] Social History Date Type Detail Facility Unknown if ever smoked [facility] Other Sex Assigned At Sex Assigned At Bir th [facility] Other Start: 1990 Sex Assigned At Female F [facility] Evaluation note 05-02-2021 Note Date & Type [...] Patient care instructions given in writting by [facility] Care At Home document. [facility] Other Evaluation note Note Date & Type Note Facility Evaluation [facility]: History general Narrative - Reported Note Date & Type Note Facility History general Narrative - Reported Type Medical History Childbirth X1 Surgical History tonsillectomy [employer] [facility] Other Summary Purpose Family History Relationship Condition Age at Onset Recorded Date/T pedrito Not Specified Hypertension Unknown Advance Directives No Advanced Directives Records FoundNo Advanced Directives Records FoundNo Advanced Directives Records Found Additional Source Comments REASON FOR VISIT (unrecogniz ed section and content) #17 SORE THROAT, COUGH, CHES T CONGESTION, FEVER, NO MASK, COVID Provider Visit INFORMATION SOURCE (unrecogn ized section and content) DATE CREATED AUTHOR 05/30/2022 [facility] DATE CREATED AUTHOR AUTHOR'S ORGANIZ ATION 10/18/2023 [facility] EPIC DATE CREATED AUTHOR AUTHOR'S ORGANIZ ATION 10/22/2023 [facility] Care Teams (unrecognized sec tion and content) Team Status: Active Member Role Status Dates Heriberto Torres MD Primary Care Provider Active Team Status: Inactive Member Role Status Dates Heriberto Torres MD Primary Care Provider Active Start: October 17, 2023 End: October 17, 2023 Melva Caban Attending Provider Active Start: [facility] 2023 End: October 17, 2023 Goals (unrecognized section and content) Goals may be documented in a n alternate section FOR RECORDS PERTAINING TO PATIENTS WHO ARE [...] BE BASED ON THE PRIMARY CLINICAL RECORDS. [employer] provides no warranty or guarantee of the accuracy or completeness of information in this document.
--- NOTE | 2023-11-12 11:23 | XR_ITS ---
The [address] [address] Patient Name: CLAUDIA CARVAJAL MRN: [id number] date: 1990 Sex: F Assigned Patient Location: [facility] Current Patient Location: Accession/Order Number: [id number] Exam Date: 11/12/2023 11:40 Report Date: 11/13/2023 07:43 At the request of: MELVA FONTANA Procedure: XR chest 2V EXAMINATION: XR chest 2V HISTORY: Preop exam COMPARISON: No relevant comparison available. TECHNIQUE: PA and lateral FINDINGS: LUNGS: No significant pulmonary parenchymal abnormalities. VASCULATURE: No increased pulmonary vasculature. PLEURA: No pneumothorax, effusion, or pleural thickening. CARDIAC: No cardiomegaly or cardiac silhouette abnormality. MEDIASTINUM: No visible mass or adenopathy. BONES: No fracture or visible bone lesion. OTHER: Negative. XR/XR chest 2V IMPRESSION: No acute disease. Electronically authenticated by: ARAM ANSARI Date: 11/13/2023 07:43
--- NOTE | 2023-11-12 12:00 | PM.PRESUREVA ---
History of Present Illness History of Present Illness Chief complaint: desires sterilization AUB Narrative: Patient presents for preadmission testing. The patient reports heavy painful menstrual periods as well as a desire for sterilization. The patient states when she is not on her. She does not experience abdominal pain, nausea, vomiting, fever, or any other complaints. Review of Systems ROS Narrative REVIEW OF SYSTEMS: Negative except as stated in HPI, ten or more systems reviewed. Constitutional: No fever , chills, weakness ENT: No sore throat or epistaxis Cardiovascular: No edema, chest pain, palpitations, or activity intolerance Respiratory: No shortness of breath, cough, or wheezing Musculoskeletal: No joint pain or swelling Genitourinary: No dysuria or hematuria Neurological: No numbness, tingling, weakness, or headache Psychiatric: No mood changes PFSH PFSH Medical History (Updated 11/12/23 @ 11:20 by Areli Craig NP) Anemia ?D64.9 - Anemia, unspecified (ICD-10) PTSD (post-traumatic stress disorder) ?F43.10 - Post-traumatic stress disorder, unspecified (ICD-10) Depression ?F32.A - Depression, unspecified (ICD-10) Anxiety ?F41.9 - Anxiety disorder, unspecified (ICD-10) Panic attacks ?F41.0 - Panic disorder [episodic paroxysmal anxiety] (ICD-10) Migraine ?G43.909 - Migraine, unspecified, not intractable, without status migrainosus (ICD-10) Heartburn ?R12 - Heartburn (ICD-10) Request for sterilization ?Z30.2 - Encounter for sterilization (ICD-10) Pelvic pain ?R10.2 - Pelvic and perineal pain (ICD-10) Abnormal uterine bleeding ?N93.9 - Abnormal uterine and vaginal bleeding, unspecified (ICD-10) Menorrhagia ?N92.0 - Excessive and frequent menstruation with regular cycle (ICD-10) Surgical History (Updated 11/12/23 @ 11:20 by Areli Craig NP) History of tonsillectomy ?Z90.89 - Acquired absence of other organs (ICD-10) Family History (Updated 11/12/23 @ 11:20 by Areli Craig NP) Other Family history of gastric cancer Family history of heart disease Family history of hypertension Social History (Updated 11/12/23 @ 11:15 by Areli Craig NP) Within the past year, how often did you have a drink containing alcohol: monthly or less Smoking status: Former smoker Do you use any of these nicotine containing products: vaping products Non-prescribed substance use: cannabis (any form) Previous occupational history: housekeeping Highest level of school completed/degree received: high school graduate Meds Home Medications and Allergies Home Medications ?Medication ?Instructions ?Recorded ?Confirmed ?Type copper 380 square mm intrauterine intrauterine 11/12/23 History device (ParaGard T 380A) Allergies Allergy/AdvReac Type Severity Reaction Status Date / Time bacitracin Allergy Rash Verified 11/12/23 11:13 [From Neosporin ([id number])] neomycin Allergy Rash Verified 11/12/23 11:13 [From Neosporin (fns-rks-wfart)] polymyxin B Allergy Rash Verified 11/12/23 11:13 [From Neosporin ([id number]-kxh-[id number])] Exam Narrative Exam Narrative: Constitutional: Awake, alert, comfortable, well-appearing, nontoxic, interactive, vital signs as charted Head: Normocephalic, atraumatic Neck: Supple, normal appearance, normal range of motion, no meningeal signs, no lymphadenopathy Respiratory: No respiratory distress, breath sounds clear Cardiovascular: Regular rate and rhythm, strong and regular heart tones Abdomen: Nontender, normal bowel sounds, soft, no CVA tenderness Musculoskeletal: Normal gait, no swelling or edema Skin: No rashes or induration, no lesions, only visible skin inspected Neuro: No neurological deficits, normal sensation Psychiatric: Oriented ?3, normal affect Assessment and Plan Assessment and Plan (1) Request for sterilization: (2) Pelvic pain: (3) Abnormal uterine bleeding: (4) Menorrhagia: Plan Robot assisted bilateral laparoscopic salpingectomy, endometrial ablation Nette scheduled with Dr. Caban 11/18/2023.
== END 2023-11-12 10:52 | disposition home or self-care (01) ==
LOC: PST 10:53
PROVIDERS: PCP Family Medicine; Visit Provider Obstetrics & Gynecology
DX: Z01.810 Encounter for preprocedural cardiovascular examination (principal); Z01.818 Encounter for other preprocedural examination; N92.0 Excessive and frequent menstruation with regular cycle; N93.9 Abnormal uterine and vaginal bleeding, unspecified; R10.2 Pelvic and perineal pain
CPT/HCPCS: 71046; G0463

== ENCOUNTER 2023-11-18 06:09 | Day surgery (SDC) | payer MEDICAID, SELFPAY ==
[2023-11-12 11:46] VITALS: BP 100/63; PULSE 79; TEMP 36.4; O2SAT 99; BMI 21.1
[2023-11-18] VITALS (11 sets, daily range): BP systolic 80–109; BP diastolic 43–67; PULSE 51–83; TEMP 36.1–36.3; O2SAT 92–98; BMI 21.7
--- OUTSIDE RECORDS SUMMARY | 2023-11-18 06:12 | XMS_ITS | CCD ---
Author Organization [facility] Care Team Providers Care Air Cargo Specialist Name Role Phone Neelam Singleton Unavailable DR [...] Unavailable Melva Caban Admitting Unavailable MD Heriberto Trores Primary Care Provider Melva Caban Attending Provider Allergies Allergy Classification Reported Allergen(s) Allergy Type Date of Onset Reaction(s) Facility (2 sources) Bacitracin / Neomycin / Polymyxin B; Translations: [Neosporin] Drug Allergy 08-18-2013 [facility] Repository (2 sources) Bacitracin Drug Allergy 06-13-2021 [facility] Repository (2 sources) Neomycin Drug Allergy 06-13-2021 [facility] Repository (2 sources) polymyxin B Drug allergy (disorder) 06-13-2021 [facility] Repository Problems Active Problems Problem Classification [...] Test Name Value Interpretation Reference Range Facility [facility] 10-17-2023 L Specimen: [id number] Received: 10/18/23 Status: JUWAN Aquino Num: [id number] Spec Type: Surgical Subm Dr: Melva Caban Tissues: A Endometrium - Biopsy (EMBX) Procedures: HE/2, Gross/Micro L4 Age/ Patient Sex Location Account Attending Physician AbdielAna 33/F [place] [id number] Melva Caban SPEC NUM: [id number] RECD: 10/18/23 STATUS: JUWAN AQUINO NUM: [id number] FIDEL: 10/17/23- SUBM DR: Melva Caban ENTERED: [...] in one cassette labeled A1. CPT Codes 92767 -------- -------- Specimen: [id number] Received: 10/18/23-123 Status: JUWAN Cardyamileth Num: [id number] Spec Type: Surgical Subm Dr: Melva Caban Tissues: A Endometrium - Biopsy (EMBX) Procedures: HE/2, Gross/Micro L4 -------- Patient: Ana Meadows [id number] (Continued) -------- Signed (signature on file) Keo Hamm MD 10/21/23 1223 [facility] PAP ACOG PANEL 2: 21 to 29on 05-29-2022 . . Normal [facility] Comment on above: Result Comment: Perf ormed at: BA Performed By: #### [id number] #### [facility] [address] [place] [address] Dr. Cih Melendrez Age Gdln ACOG Testing 21-29 Normal [facility] Comment on above: Performed By: #### [id number] #### [facility] [address] [place] [address] Dr. Chi Melendrez DIAGNOSIS: Comment Normal [facility] Comment on above: Result Comment: NEGA TIVE FOR INTRAEPITHELIAL LESION OR MALIGNANCY. Performed at: BA Performed By: #### [id number] #### [facility] [address] [place] [address] Dr. Chi Melendrez Methodology: Comment Normal [facility] Comment on above: Result Comment: This liquid based ThinPrep(R) pap test was screened with the use of an image guided system. Performed at: WB Performed By: #### [id number] #### [facility] [address] [place] [address] Dr. Chi Melendrez Note: Comment Normal [facility] Comment on above: Result Comment: The Pap smear is a screening test designed to aid in the detection of premalignant and malignant conditions of the uterine cervix. It is not a diagnostic procedure and should not be used as the sole means of detecting cervical cancer. Both false-positive and false-negative reports do occur. . Performed at: WB Performed By: #### [id number] #### [facility] [address] [place] [address] Dr. Chi Melendrez Performed by: Comment Normal [facility] Comment on above: Result Comment: Cheo [employer] Editor (ASCP) Performed at: BA Performed By: #### [id number] #### [facility] [address] [place] [address] Dr. Chi Melendrez Reflex Criteria: Comment [facility] Comment on above: Result Comment: The HPV DNA reflex criteria were not met with this specimen result therefore, no HPV testing was performed. . Performed at: BA Performed By: #### [id number] #### [facility] [address] [place] [address] Dr. Chi Melendrez Specimen adequacy: Comment Normal [facility] Comment on above: Result Comment: Sati sfactory for evaluation. Endocervical and/or squamous metaplastic cells (endocervical component) are present. Performed at: BA Performed By: #### [id number] #### [facility] [address] [place] [address] Dr. Chi Melendrez AMYLASEon 05-11-2022 Amylase [Catalytic activity/Vol] 72 U/L Normal 25-115 [facility] Comment on above: Performed By: #### C MP, CATHERINE, LIPA #### [facility] [address] [place] [address] Dr. Chi Melendrez CBC AUTO DIFFon 05-11-2022 BASO # 0.0 103/ul Normal 0.0-0.1 [facility] Comment on above: Performed By: #### C BC #### [facility] [address] [place] [address] Dr. Chi Melendrez Basophils/100 WBC (Bld) 0.3 % Normal 0.2-2.0 [facility] Comment on above: Performed By: #### C BC #### [facility] [address] [place] [address] Dr. Chi Melendrez EO # 0.0 103/ul Normal 0.0-0.7 [facility] Comment on above: Performed By: #### C BC #### [facility] [address] [place] [address] Dr. Chi Melendrez Eosinophils/100 WBC (Bld) 0.2 % Critically low 0.9-7.0 [facility] Comment on above: Performed By: #### C BC #### [facility] [address] [place] [address] Dr. Chi Melendrez Erythrocyte distribution width (RBC) [Ratio] 12.4 % Normal 11.0-15.0 [facility] Comment on above: Performed By: #### C BC #### [facility] [address] [place] [address] Dr. Chi Melendrez Hematocrit (Bld) [Volume fraction] 39.3 % Normal 36.0-48.0 [facility] Comment on above: Performed By: #### C BC #### [facility] [address] [place] [address] Dr. Chi Melendrez Hemoglobin (Bld) [Mass/Vol] 13.1 g/dL Normal 12.0-16.0 [facility] Comment on above: Performed By: #### C BC #### [facility] [address] [place] [address] Dr. Chi Melendrez IG # 0.03 10e3/ul Normal 0.00-0.03 [facility] Comment on above: Performed By: #### C BC #### [facility] [address] [place] [address] Dr. Chi Melendrez IG % 0.3 % Normal 0.0-0.5 [facility] Comment on above: Performed By: #### C BC #### [facility] [address] [place] [address] Dr. Chi Melendrez LYMPH # 1.3 103/ul Normal 1.2-3.8 [facility] Comment on above: Performed By: #### C BC #### [facility] [address] [place] [address] Dr. Chi Melendrez Lymphocytes/100 WBC (Bld) 10.5 % Critically low 20.5-60.0 [facility] Comment on above: Performed By: #### C BC #### [facility] [address] [place] [address] Dr. Chi Melendrez MANUAL DIFF REQ NO Normal [facility] Comment on above: Performed By: #### C BC #### [facility] [address] [place] [address] Dr. Chi Melendrez MCH (RBC) [Entitic mass] 29.8 pg Normal 26.7-34.0 [facility] Comment on above: Performed By: #### C BC #### [facility] [address] [place] [address] Dr. Chi Melendrez MCHC (RBC) [Mass/Vol] 33.3 g/dL Normal 29.9-35.2 [facility] Comment on above: Performed By: #### C BC #### [facility] [address] [place] [address] Dr. Chi Melendrez MCV (RBC) [Entitic vol] 89.5 fL Normal 81.0-99.0 [facility] Comment on above: Performed By: #### C BC #### [facility] [address] [place] [address] Dr. Chi Melendrez MONO # 0.6 103/ul Normal 0.3-0.8 [facility] Comment on above: Performed By: #### C BC #### [facility] [address] [place] [address] Dr. Chi Melendrez Monocytes/100 WBC (Bld) 4.6 % Normal 1.7-12.0 [facility] Comment on above: Performed By: #### C BC #### [facility] [address] [place] [address] Dr. Chi Melendrez NEUT # 10.0 103/ul Critically high 1.4-6.5 [facility] Comment on above: Performed By: #### C BC #### [facility] [address] [place] [address] Dr. Chi Melendrez Neutrophils/100 WBC (Bld) 84.1 % Critically high 43.0-75.0 [facility] Comment on above: Performed By: #### C BC #### [facility] [address] [place] [address] Dr. Chi Melendrez Platelet mean volume (Bld) [Entitic vol] 11.5 fL Normal 9.5-13.5 [facility] Comment on above: Performed By: #### C BC #### [facility] [address] [place] [address] Dr. Chi Melendrez PLT 268 103/ul Normal 150-450 [facility] Comment on above: Performed By: #### C BC #### [facility] [address] [place] [address] Dr. Chi Melendrez RBC 4.39 106/ul Normal 4.20-5.40 [facility] Comment on above: Performed By: #### C BC #### [facility] [address] [place] [address] Dr. Chi Melendrez WBC 11.9 103/ul Critically high 4.0-11.0 [facility] Comment on above: Performed By: #### C BC #### [facility] [address] [place] [address] Dr. Chi Melendrez LIPASEon 05-11-2022 Lipase [Catalytic activity/Vol] 101.0 U/L Normal 73.0-393.0 [facility] Comment on above: Performed By: #### C MP, CATHERINE, LIPA #### [facility] [address] [place] [address] Dr. Chi Melendrez PROF 14(COMP METB)on 022 Albumin [Mass/Vol] 4.2 g/dL Normal 3.4-5.0 [facility] Comment on above: Performed By: #### C MP CATHERINE, LIPA #### [facility] [address] [place] [address] Dr. Chi Melendrez Albumin/Globulin [Mass ratio] 1.2 {ratio} Normal [facility] Comment on above: Performed By: #### C MP, CATHERINE, LIPA #### [facility] [address] [place] [address] Dr. Chi Melendrez ALP [Catalytic activity/Vol] 67 U/L Normal 46-116 [facility] Comment on above: Performed By: #### C MP, CATHERINE, LIPA #### [facility] [address] [place] [address] Dr. Chi Melendrez ALT [Catalytic activity/Vol] 17 U/L Normal 14-59 [facility] Comment on above: Performed By: #### C MP, CATHERINE, LIPA #### [facility] [address] [place] [address] Dr. Chi Melendrez Anion gap [Moles/Vol] 10.1 mmol/L Normal [facility] Comment on above: Performed By: #### C MP, CATHERINE, LIPA #### [facility] [address] [place] [address] Dr. Chi Melendrez AST [Catalytic activity/Vol] 13 U/L Critically low 15-37 [facility] Comment on above: Performed By: #### C MP, CATHERINE, LIPA #### [facility] [address] [address] [address] Chi Melendrez Bilirubin [Mass/Vol] 0.5 mg/dL Normal 0.2-1.0 [facility] Comment on above: Performed By: #### C MP, CATHERINE, LIPA #### [facility] [address] [address] [address] Chi Melendrez Calcium [Mass/Vol] 9.2 mg/dL Normal 8.5-10.1 [facility] Comment on above: Performed By: #### C MP, CATHERINE, LIPA #### [facility] [address] [place] [address] Dr. Chi Melendrez Chloride [Moles/Vol] 104 mmol/L Normal 98-107 [facility] Comment on above: Performed By: #### C MP, CATHERINE, LIPA #### [facility] [address] [place] [address] Dr. Chi Melendrez CO2 [Moles/Vol] 27.8 mmol/L Normal 21.0-32.0 [facility] Comment on above: Performed By: #### C MP, CATHERINE, LIPA #### [facility] [address] [address] [address] Chi Melendrez Creatinine [Mass/Vol] 0.75 mg/dL Normal 0.55-1.02 [facility] Comment on above: Performed By: #### C MP, CATHERINE, LIPA #### [facility] [address] [place] [address] Dr. Chi Melendrez EGFR-AF PANAMANIAN >60 Normal >=60 [facility] Comment on above: Performed By: #### C MP, CATHERINE, LIPA #### [facility] [address] [place] [address] Dr. Chi Melendrez EGFR-NON AF PANAMANIAN >60 Normal >=60 [facility] Comment on above: Performed By: #### C MP, CATHERINE, LIPA #### [facility] [address] [place] [address] Dr. Chi Melendrez Globulin (S) [Mass/Vol] 3.4 g/dL Normal [facility] Comment on above: Performed By: #### C CATHERINE HYATT, LIPA #### [facility] [address] [place] [address] Dr. Chi Melendrez Glucose [Mass/Vol] 117 mg/dL Critically high 74-106 [facility] Comment on above: Performed By: #### C CATHERINE HYATT, LIPA #### [facility] [address] [place] [address] Dr. Chi Melendrez Potassium [Moles/Vol] 3.9 mmol/L Normal 3.5-5.1 [facility] Comment on above: Performed By: #### C CATHERINE HYATT, LIPA #### [facility] [address] [place] [address] Dr. Chi Melendrez Protein [Mass/Vol] 7.6 g/dL Normal 6.4-8.2 [facility] Comment on above: Performed By: #### C CATHERINE HYATT, LIPA #### [facility] [address] [place] [address] Dr. Chi Melendrez Sodium [Moles/Vol] 138 mmol/L Normal 136-145 [facility] Comment on above: Performed By: #### C CATHERINE HYATT, LIPA #### [facility] [address] [place] [address] Dr. Chi Melendrez Urea nitrogen [Mass/Vol] 16.0 mg/dL Normal 7.0-18.0 [facility] Comment on above: Performed By: #### C CATHERINE HYATT LIPA #### [facility] [address] [place] [address] Dr. Chi Melendrez Urea nitrogen/Creatini ne [Mass ratio] 21.3 mg/mg Normal [facility] Comment on above: Performed By: #### C CATHERINE HYATT LIPA #### [facility] [address] [place] [address] Dr. Chi Melendrez COVID Quick Testingon 2020 Result Negative [employer] Other Vital Signs Date Time Vital Sign Value Performing Clinician Facility 05-02-2021 14:00-0400 Body height 157.48 cm Neelam Singleton Other [employer] Other 05-02-2021 14:00-0400 Body mass index (BMI) [Ratio] 24.69 kg/m2 Neelam Singleton Other [facility] Other 05-02-2021 14:00-0400 Body temperature 98.7 [degF] Neelam Areli Other [employer] Other 05-02-2021 14:00-0400 Body weight 61.24 kg Neelam Singleton Other [facility] Other 05-02-2021 14:00-0400 SaO2% (BldA) [Mass fraction] 97 % Neelam Areli Other [employer] Other Encounters Encounter Date Encounter Type Care Provider Facility Start: 10-17-2023 End: 10-17-2023 ambulatory Heriberto Torres Facility:[facility] Start: 10-17-2023 End: 10-17-2023 Departed Referred MD Heriberto Torres Work Phone: [facility] Start: 10-17-2023 End: 10-17-2023 ambulatory MELVA ADDI Not Available Start: 10-01-2023 End: 10-01-2023 ambulatory MELVA ADDI Not Available Start: 09-03-2023 End: 09-03-2023 ambulatory MELVA ADDI Not Available Start: 05-23-2022 End: 05-23-[address] PHI HARPER Facility:[facility] Start: 05-11-2022 End: 05-11-[address] NAZANIN BROWN Facility:[facility] Start: 05-02-2021 Office outpatient vi sit 15 minutes Neelam Singleton [facility] Payers Date Payer Category Payer Self-pay 1992 Unknown [id number] 2.16.84 [id number] 1992 Unknown [id number] 2.16.84 [id number] 1992 Unknown [id number] 2.16.84 [id number] 1992 Unknown [id number] 2.16.84 [id number] 1992 Unknown [id number] 2.16.84 [id number] 1957 Medicaid [id number] Unknown [id number] [id number]. [id number] Social History Date Type Detail Facility Unknown if ever smoked [employer] Other Sex Assigned At Sex Assigned At Bir th [employer] Other Start: 1990 Sex Assigned At Female [facility] Evaluation note 05-02-2021 Note Date & Type [...] Patient care instructions given in writting by [facility] Care At Home document. [employer] Other Evaluation note Note Date & Type Note Facility [facility]: History general Narrative - Reported Note Date & Type Note Facility History general Narrative - Reported Type Medical History Childbirth X1 Surgical History tonsillectomy [employer] [facility] [employer] Other Summary Purpose Family History Relationship Condition [...] and content) DATE CREATED AUTHOR 05/30/2022 [facility] DATE CREATED AUTHOR AUTHOR'S ORGANIZ ATION 10/18/2023 [facility] EPIC DATE CREATED AUTHOR AUTHOR'S ORGANIZ ATION 10/22/2023 [facility] Care Teams (unrecognized sec tion and content) Team Status: Active Member Role Status Dates Heriberto Torres MD Primary Care Provider Active Team Status: Inactive Member Role Status Dates Heriberto Torres MD Primary Care Provider Active Start: October 17, 2023 End: October 17, 2023 Melva Caban Attending Provider Active Start: [facility] 2023 End: October 17, 2023 [...] BE BASED ON THE PRIMARY CLINICAL RECORDS. [employer] provides no warranty or guarantee of the accuracy or completeness of information in this document.
[2023-11-18 06:29] LABS: Basophils Percent Auto 0.5 % (0.2-2.0); Eosinophils Absolute Auto 0.2 10^3/uL (0.0-0.7); Eosinophils Percent Auto 2.6 % (0.9-7.0); Hematocrit 37.1 % (36.0-48.0); Hemoglobin 11.8 g/dL (12.0-16.0); Immature Granulocytes Abs Auto 0.01 10^3/uL (0.00-0.03); Immature Granulocytes Pct Auto 0.1 % (0.0-0.5); Lymphocytes Absolute Auto 3.1 10^3/uL (1.2-3.8); Lymphocytes Percent Auto 37.9 % (20.5-60.0); Mean Corpuscular HGB Conc 31.8 g/dL (29.9-35.2); Mean Corpuscular Hemoglobin 28.8 pg (26.7-34.0); Mean Corpuscular Volume 90.5 fL (81.0-99.0); Mean Platelet Volume 11.4 fL (9.5-13.5); Monocytes Absolute Auto 0.8 10^3/uL (0.3-0.8); Monocytes Percent Auto 9.3 % (1.7-12.0); Neutrophils Absolute Auto 4.1 10^3/uL (1.4-6.5); Neutrophils Percent Auto 49.6 % (43.0-75.0); Platelet Count 229 10^3/uL (150-450); Red Cell Distribution Width 13.1 % (11.0-15.0); White Blood Count 8.2 10^3/uL (4.0-11.0)
[2023-11-18] MEDS: LACTATED RINGER'S SOLUTION 1,000 ML 50 ML IV (06:44)
[2023-11-18 07:03] LABS: HCG Quantitative <1 mIU/mL
--- NOTE | 2023-11-18 08:26 | P.ON_ITS ---
Brief Operative Note Date of procedure: 11/18/23 Pre-op diagnosis general: desires permanent sterilization, menorrhagia Post-op diagnosis: same as pre-op Procedure: NAME OF PROCEDURE: robotic assisted Laparoscopic bilateral salpingectomy, with Nette endometrial ablation with hysteroscopy PROCEDURE: The patient was taken back to the OR where she was prepped and draped in the normal sterile fashion after being placed in the dorsal lithotomy position, after being placed under general anesthesia without difficulty. a weighted speculum was then placed into the vagina. Pap and endometrial bx were performed without difficultyThe anterior lip was grasped with a single tooth tenaculum. The patient was then sounded to approximatley 9cm. The patient was gently sounded using Hegar dilators and the hysteroscope was passed through the cervix into the uterus where both ostia were seen. No gross evidence of polyps, fibroids or malignancy. The cervical length was noted to be 4cm. The Nette ablation apparatus was set to approximately 5cm in length. This was placed in through the cervix and into the uterus. After the seal was tested, at that time the total ablation of 120 seconds was performed with the Nette without difficulty. All instruments were removed from the vagina. A wet sponge stick was placed into the patient's vagina. Attention was then turned to the patient's abdomen, where a scalpel was used to make a small infraumbilical incision. The S retractors were then used to dissect the underlying layers until the fascia could be seen. The fascia was then grasped with Lizy clamps and tented up. A knife was then used to make a small incision to the fascia. The muscle was identified, at that time two sutures of #0 Vicryl on a GI needlewas then used and placed through the fascia. The peritoneum was then identified and entered bluntly. The 10-4 Haley was then placed into the patient's abdomen. This was confirmed with direct visualization of the bowel, using the laparoscope. The patient's abdomen was then insufflated using approximately 4 liters of CO2 gas. Survey of the patient's abdomen demonstrated normal appearing ovaries, uterus and tubes. A second and third lateral robotic ports, which was 8mm in size, was then placed laterally after incision was made in the skin under direct visualization. the robotic arms were engaged. The patient's tube on the patient's right side was identified. The tube was then tented up using a grasper. The ligasure was used to transect and coagulate the mesosalpingx from the fimbriated end to the insertion at the uterus, the tube was amputated and removed in its entirety.? Excellent hemostasis was noted. ?This was performed on the contralateral sideas well. The lateral ports were then moved under direct visualization with excellent hemostasis. The abdomen was deinsufflated. All instruments were removed from the patient's abdomen. The fascia was closed using the #0 Vicryl on GI needle. The skin was closed using 4- 0 Vicryl subcuticularly. All instruments were removed from the patient's vagina as well. The patient was taken out of the dorsal lithotomy position and placed in the supine position and taken to recovery in stable condition. Sponge, lap and needle counts were correct x2. ??? Anesthesia: [facility] Surgeon: Leland Caban Academic Specialist: Pema Humphrey Estimated blood loss (mL): 5 Pathology: other (tubes) Condition: stable Disposition: PACU Urinary Catheter Management Urinary Catheter Management Urethral: Cath placed during this visit: no
[2023-11-18] MEDS: HYDROCODONE/ACET 5-325 MG TABLET 1 TAB PO (09:11)
== END 2023-11-18 10:29 | disposition home or self-care (01) ==
PROVIDERS: PCP Family Medicine; Visit Provider Obstetrics & Gynecology
PROC: (CPT 840; principal; 2023-11-18 07:30)
PROC: (CPT 840; 2023-11-18 07:30)
DX: Z30.2 Encounter for sterilization (principal); N92.0 Excessive and frequent menstruation with regular cycle; R10.2 Pelvic and perineal pain; N93.9 Abnormal uterine and vaginal bleeding, unspecified; N70.11 Chronic salpingitis; N83.8 Other noninflammatory disorders of ovary, fallopian tube and broad ligament; F32.A Depression, unspecified; F43.10 Post-traumatic stress disorder, unspecified; F41.9 Anxiety disorder, unspecified; R12 Heartburn; F17.290 Nicotine dependence, other tobacco product, uncomplicated
CPT/HCPCS: 58301; 58563; 58661; 36415; 84702; 85025; 88302; 99999; J1094; J2704

== ENCOUNTER 2023-12-24 08:33 | Outpatient (OUT) | payer MEDICAID, SELFPAY ==
--- NOTE | 2023-12-24 08:35 | CT_ITS ---
[address] [address] Patient Name: CLAUDIA CARVAJAL MRN: [id number] date: 1990 Sex: F Assigned Patient Location: CT Current Patient Location: Accession/Order Number: [id number] Exam Date: 12/24/2023 10:25 Report Date: 12/25/2023 06:21 At the request of: RASHAWN OLEARY Procedure: CT abdomen pelvis w con EXAMINATION: CT abdomen pelvis w con HISTORY: Lesion Of Cecum K63.9 COMPARISON: No relevant comparison available. TECHNIQUE: Axial, Coronal, and Sagittal images were obtained without and/or with IV contrast as indicated by examination type. Dose reduction techniques were achieved by using automated exposure control and/or adjustment of mA and/or kV according to patient size and/or use of iterative reconstruction technique. FINDINGS: LUNG BASES: No visible pulmonary or pleural disease. LIVER: No enlargement, atrophy, suspicious density, or significant focal lesion. BILIARY: No dilatation or calcification. PANCREAS: No lesion, fluid collection, or abnormal duct dilatation. SPLEEN: No enlargement or focal lesion. ADRENALS: No mass or enlargement. KIDNEYS: No mass, obstruction, or calcification. BOWEL/MESENTERY: No visible mass, obstruction, or bowel wall thickening. Normal appendix. AORTA/VASCULAR: No aneurysm or dissection. RETROPERITONEUM: No mass or adenopathy. LYMPH NODES: No adenopathy. URINARY BLADDER: No visible focal wall thickening, lesion, or calculus. PELVIC ORGANS: Incidental collapsing follicle within left ovary. No visible mass. Pelvic organs appropriate for patient age. ABDOMINAL WALL: No mass or hernia. BONES: No bony lesion or fracture. OTHER: Negative. CT/CT abdomen pelvis w con IMPRESSION: 1. No abnormal or suspicious findings with specific attention to the cecum. Electronically authenticated by: KRYSTAL KEN Date: 12/25/2023 06:21
--- OUTSIDE RECORDS SUMMARY | 2023-12-24 08:53 | XMS_ITS | CCD ---
Author Organization [facility] Care Team Providers Care Labor Relations Officer Name Role Phone Neelam Singleton Unavailable KEVIN, DR BACK Admitting Unavailable HAY, DR BACK Consulting Unavailable HAY, DR BACK Attending Unavailable MISC, DR PLUMMER Primary Care Unavailable KARASIK, DR YIP Attending Unavailable MISC, DR PLUMMER Primary Care Unavailable KARASIK, DR YIP Admitting Unavailable KARASIK, DR YIP Consulting Unavailable MD Heriberto Torres Primary Care Provider Melva Caban Attending Provider Melva Caban Admitting Unavailable Defrance, Heriberto Primary Care Unavailable Mee, Melva Attending Unavailable Heriberto Torres Primary Care Unavailable Mee, Melva Attending Unavailable Mee, Melva Admitting Unavailable MEE, MELVA Attending Unavailable MEE, MELVA Attending Unavailable MEE, MELVA Attending Unavailable CATHERINE JOHNSON Attending Unavailable RASHAWN OLEARY Attending Unavailable MEEMERON PIZARROY Referring Unavailable Allergies Allergy Classification Reported Allergen(s) Allergy Type Date of Onset Reaction(s) Facility (2 sources) Bacitracin / Neomycin / Polymyxin B; Translations: [Neosporin] Drug Allergy 08-18-2013 [facility] Repository (3 sources) Bacitracin; Translations: [bacitracin] Drug Allergy 06-13-[address] [facility] (3 sources) Neomycin; Translations: [neomycin] Drug Allergy 06-13-[address] [facility] (3 sources) polymyxin B; Translations: [polymyxin B] Allergy to substance 06-13-[address] [facility] Problems Active Problems Problem Classification Problem Date [...] Test Name Value Interpretation Reference Range Facility [facility] 11-18-2023 L Specimen: [id number] Received: 11/20/23 Status: JUWAN Aquino Num: [id number] Spec Type: Surgical Subm Dr: Melva Caban Tissues: A Fallopian Tube - Sterilization (BILT FALL TUBES) Procedures: HE, Gross/Micro L2 Age/ Patient Sex Location Account Attending Physician Claudia Meadows 33/F LABELL [id number] Melva Caban SPEC NUM: [id number] RECD: 11/20/23 STATUS: JUWAN AQUINO NUM: [id number] FIDEL: 11/18/[address]: Melva Caban ENTERED: 11/20/[address]: Tosin,Lab SPEC TYPE: Surgical DEPT: ROSEANNE RMASAY ENTERED BY: [id number] RECV BY: [id number] ORDERED: HE, Gross/Micro L2 ORDERED: HE, Gross/Micro L2 Pathological Diagnosis Bilateral fallopian tubes, bilateral salpingectomy: -Bilateral intact fimbriated fallopian tubes with mild nonspecific chronic salpingitis, including occasional foamy histiocytes within lamina propria of the mucosa in both tubes, in addition to 1 tiny paratubal cyst also noted in one of the tubes without atypia Clinical Information Request for sterilization, menorrhagia, AUB, Path pending Removal of the Nette IUD Gross Description Received in formalin, labeled as bilateral fallopian tubes, are 2 pieces of pink-purple fimbriated cylindrical tissue both measuring 5.3 cm long by 1.3 cm greatest diameter. Manager Willow sections are submitted in A1?A2 RG/CYC CPT Codes 74585 -------- -------- Specimen: [id number] Received: 11/20/23 Status: JUWAN Aquino Num: [id number] Spec Type: Surgical Subm Dr: Melva Caban Tissues: A Fallopian Tube - Sterilization (BILT FALL TUBES) Procedures: David GOLDBERG/Day L2 -------- Patient: Claudia Meadows [id number] (Continued) -------- Signed (signature on file) Kavon Melendrez MD 11/20/23 183 Normal [facility] Mayank 10-17-2023 L Specimen: [id number] Received: 10/18/23 Status: JUWAN Reyamileth Num: [id number] Spec Type: Surgical Subm Dr: Melva Caban Tissues: A Endometrium - Biopsy (EMBX) Procedures: HE/2, Gross/Micro L4 Age/ Patient Sex Location Account Attending Physician AbdielClaudia / LABELL [id number] Melva Caban SPEC NUM: [id number] RECD: 10/18/23 STATUS: JUWAN AQUINO NUM: [id number] FIDEL: 10/17/23- SUBM DR: Melva Caban ENTERED: 10/18/23 [facility] DR: Tosin,Lab SPEC TYPE: Surgical DEPT: ROSEANNE RAMSAY ORDERED: HE/2, Gross/Micro L4 ORDERED: HE/2, Gross/Micro L4 Pathological Diagnosis Endometrium, Curettage: Secretory Endometrium. Clinical Information Menorrhagia Gross Description Received in formalin labeled with the patient's name, date of and endo BX per requisition is a 2.5 x 1.2 x 0.3 cm aggregate of luu-red tissue. Entirely submitted in one cassette labeled A1. CPT Codes 58801 -------- -------- Specimen: [id number] Received: 10/18/23 Status: JUWAN Aquino Num: [id number] Spec Type: Surgical Subm Dr: Melva Caban Tissues: A Endometrium - Biopsy (EMBX) Procedures: HE/Marlee, Gross/Micro L4 -------- Patient: AbdielClaudia [id number] (Continued) -------- Signed (signature on file) Keo Hamm MD 10/21/23 1223 Normal [facility] PAP ACOG PANEL 2: 23 to 31on 05-29-2022 . . Normal [facility] Comment on above: Result Comment: Perf ormed at: BA Performed By: #### [id number] #### [facility] [address] [address] [address] Chi Melendrez Age Gdln ACOG Testing - Normal [facility] Comment on above: Performed By: #### [id number] #### [facility] [address] [address] [address] Chi Melendrez DIAGNOSIS: Comment [facility] Comment on above: Result Comment: NEGA TIVE FOR INTRAEPITHELIAL LESION OR MALIGNANCY. Performed at: BA Performed By: #### [id number] #### [facility] [address] [place] [address] Dr. Chi Melendrez Methodology: Comment Normal [facility] Comment on above: Result Comment: This liquid based ThinPrep(R) pap test was screened with the use of an image guided system. Performed at: WB Performed By: #### [id number] #### [facility] [address] [place] [address] Dr. Chi Melendrez Note: Comment Normal [facility] Comment on above: Result Comment: The Pap smear is a screening test designed to aid in the detection of premalignant and malignant conditions of the uterine cervix. It is not a diagnostic procedure and should not be used as the sole means of detecting cervical cancer. Both false-positive and false-negative reports do occur. . Performed at: WB Performed By: #### [id number] #### [facility] [address] [place] [address] Dr. Chi Melendrez Performed by: Comment Normal [facility] Comment on above: Result Comment: Cheo Nance, Office Asst (ASCP) Performed at: BA Performed By: #### [id number] #### [facility] [address] [place] [address] Dr. Chi Melendrez Reflex Criteria: Comment Normal [facility] Comment on above: Result Comment: The HPV DNA reflex criteria were not met with this specimen result therefore, no HPV testing was performed. . Performed at: BA Performed By: #### [id number] #### [facility] [address] [place] [address] Dr. Chi Melendrez Specimen adequacy: Comment Normal [facility] Comment on above: Result Comment: Sati sfactory for evaluation. Endocervical and/or squamous metaplastic cells (endocervical component) are present. Performed at: BA Performed By: #### [id number] #### [facility] [address] [place] [address] Dr. Chi Melendrez AMYLASEon 05-11-2022 Amylase [Catalytic activity/Vol] 72 U/L Normal 25-115 [facility] Comment on above: Performed By: #### C MP, CATHERINE, LIPA #### [facility] [address] [place] [address] Dr. Chi Melendrez CBC AUTO DIFFon 05-11-2022 BASO # 0.0 103/ul Normal 0.0-0.1 [facility] Comment on above: Performed By: #### C BC #### [facility] [address] [place] [address] Dr. Chi Melendrez Basophils/100 WBC (Bld) 0.3 % Normal 0.2-2.0 [facility] Comment on above: Performed By: #### C BC #### [facility] [address] [place] [address] Dr. Chi Melendrez EO # 0.0 103/ul Normal 0.0-0.7 [facility] Comment on above: Performed By: #### C BC #### [facility] [address] [place] [address] Dr. Chi Melendrez Eosinophils/100 WBC (Bld) 0.2 % Critically low 0.9-7.0 [facility] Comment on above: Performed By: #### C BC #### [facility] [address] [place] [address] Dr. Chi Melendrez Erythrocyte distribution width (RBC) [Ratio] 12.4 % Normal 11.0-15.0 [facility] Comment on above: Performed By: #### C BC #### [facility] [address] [place] [address] Dr. Chi Melendrez Hematocrit (Bld) [Volume fraction] 39.3 % Normal 36.0-48.0 [facility] Comment on above: Performed By: #### C BC #### [facility] [address] [place] [address] Dr. Chi Melendrez Hemoglobin (Bld) [Mass/Vol] 13.1 g/dL Normal 12.0-16.0 [facility] Comment on above: Performed By: #### C BC #### [facility] [address] [place] [address] Dr. Chi Melendrez IG # 0.03 10e3/ul Normal 0.00-0.03 [facility] Comment on above: Performed By: #### C BC #### [facility] [address] [place] [address] Dr. Chi Melendrez IG % 0.3 % Normal 0.0-0.5 [facility] Comment on above: Performed By: #### C BC #### [facility] [address] [place] [address] Dr. Chi Melendrez LYMPH # 1.3 103/ul Normal 1.2-3.8 [facility] Comment on above: Performed By: #### C BC #### [facility] [address] [place] [address] Dr. Chi Melendrez Lymphocytes/100 WBC (Bld) 10.5 % Critically low 20.5-60.0 [facility] Comment on above: Performed By: #### C BC #### [facility] [address] [place] [address] Dr. Chi Melendrez MANUAL DIFF REQ NO Normal [facility] Comment on above: Performed By: #### C BC #### [facility] [address] [place] [address] Dr. Chi Melendrez MCH (RBC) [Entitic mass] 29.8 pg Normal 26.7-34.0 [facility] Comment on above: Performed By: #### C BC #### [facility] [address] [place] [address] Dr. Chi Melendrez MCHC (RBC) [Mass/Vol] 33.3 g/dL Normal 29.9-35.2 [facility] Comment on above: Performed By: #### C BC #### [facility] [address] [place] [address] Dr. Chi Melendrez MCV (RBC) [Entitic vol] 89.5 fL Normal 81.0-99.0 [facility] Comment on above: Performed By: #### C BC #### [facility] [address] [place] [address] Dr. Chi Melendrez MONO # 0.6 103/ul Normal 0.3-0.8 [facility] Comment on above: Performed By: #### C BC #### [facility] [address] [place] [address] Dr. Chi Melendrez Monocytes/100 WBC (Bld) 4.6 % Normal 1.7-12.0 [facility] Comment on above: Performed By: #### C BC #### [facility] [address] [place] [address] Dr. Chi Melendrez NEUT # 10.0 103/ul Critically high 1.4-6.5 [facility] Comment on above: Performed By: #### C BC #### [facility] [address] [place] [address] Dr. Chi Melendrez Neutrophils/100 WBC (Bld) 84.1 % Critically high 43.0-75.0 [facility] Comment on above: Performed By: #### C BC #### [facility] [address] [place] [address] Dr. Chi Melendrez Platelet mean volume (Bld) [Entitic vol] 11.5 fL Normal 9.5-13.5 [facility] Comment on above: Performed By: #### C BC #### [facility] [address] [place] [address] Dr. Chi Melendrez PLT 268 103/ul Normal 150-450 [facility] Comment on above: Performed By: #### C BC #### [facility] [address] [place] [address] Dr. Chi Melendrez RBC 4.39 106/ul Normal 4.20-5.40 [facility] Comment on above: Performed By: #### C BC #### [facility] [address] [place] [address] Dr. Chi Melendrez WBC 11.9 103/ul Critically high 4.0-11.0 [facility] Comment on above: Performed By: #### C BC #### [facility] [address] [place] [address] Dr. Chi Melendrez LIPASEon 05-11-2022 Lipase [Catalytic activity/Vol] 101.0 U/L Normal 73.0-393.0 [facility] Comment on above: Performed By: #### C CATHERINE HYATT, LIPA #### [facility] [address] [address] [address] Chi Melendrez PROF 14(COMP METB)on 022 Albumin [Mass/Vol] 4.2 g/dL Normal 3.4-5.0 [facility] Comment on above: Performed By: #### C EDMAR CATHERINE, LIPA #### [facility] [address] [address] [address] Chi Melendrez Albumin/Globulin [Mass ratio] 1.2 {ratio} Normal [facility] Comment on above: Performed By: #### C CATHERINE HYATT, LIPA #### [facility] [address] [place] [address] Dr. Chi Melendrez ALP [Catalytic activity/Vol] 67 U/L Normal 46-116 [facility] Comment on above: Performed By: #### C CATHERINE HYATT, LIPA #### [facility] [address] [address] [address] Chi Melendrez ALT [Catalytic activity/Vol] 17 U/L Normal 14-59 [facility] Comment on above: Performed By: #### C CATHERINE HYATT LIPA #### [facility] [address] [place] [address] Dr. Chi Melendrez Anion gap [Moles/Vol] 10.1 mmol/L Normal [facility] Comment on above: Performed By: #### C CATHERINE HYATT, LIPA #### [facility] [address] [address] [address] Chi Melendrez AST [Catalytic activity/Vol] 13 U/L Critically low 15-37 [facility] Comment on above: Performed By: #### C CATHERINE HYATT LIPA #### [facility] [address] [place] [address] Dr. Chi Melendrez Bilirubin [Mass/Vol] 0.5 mg/dL Normal 0.2-1.0 [facility] Comment on above: Performed By: #### C CATHERINE HYATT, LIPA #### [facility] [address] [place] [address] Dr. Chi Melendrez Calcium [Mass/Vol] 9.2 mg/dL Normal 8.5-10.1 [facility] Comment on above: Performed By: #### C CATHERINE HYATT LIPA #### [facility] [address] [address] [address] Chi Melendrez Chloride [Moles/Vol] 104 mmol/L Normal 98-107 [facility] Comment on above: Performed By: #### C CATHERINE HYATT, LIPA #### [facility] [address] [address] [address] Chi Melendrez CO2 [Moles/Vol] 27.8 mmol/L Normal 21.0-32.0 [facility] Comment on above: Performed By: #### C CATHERINE HYATT LIPA #### [facility] [address] [address] [address] Chi Melendrez Creatinine [Mass/Vol] 0.75 mg/dL Normal 0.55-1.02 [facility] Comment on above: Performed By: #### C CATHERINE HYATT LIPA #### [facility] [address] [address] [address] Chi Melendrez EGFR-AF [place]LANDER >60 Normal >=60 [facility] Comment on above: Performed By: #### C CATHERINE HYATT LIPA #### [facility] [address] [address] [address] Chi Melendrez EGFR-NON AF [place]ER >60 Normal >=60 [facility] Comment on above: Performed By: #### C CATHERINE HYATT LIPA #### [facility] [address] [address] [address] Chi Melendrez Globulin (S) [Mass/Vol] 3.4 g/dL Normal [facility] Comment on above: Performed By: #### C CATHERINE HYATT LIPA #### [facility] [address] [address] [address] Chi Melendrez Glucose [Mass/Vol] 117 mg/dL Critically high 74-106 [facility] Comment on above: Performed By: #### C CATHERINE HYATT, LIPA #### [facility] [address] [address] [address] Chi Melendrez Potassium [Moles/Vol] 3.9 mmol/L Normal 3.5-5.1 [facility] Comment on above: Performed By: #### C MP, CATHERINE, LIPA #### [facility] [address] [address] [address] Chi Melendrez Protein [Mass/Vol] 7.6 g/dL Normal 6.4-8.2 [facility] Comment on above: Performed By: #### C MP, CATHERINE, LIPA #### [facility] [address] [address] [address] Chi Melendrez Sodium [Moles/Vol] 138 mmol/L Normal 136-145 [facility] Comment on above: Performed By: #### C MP, CATHERINE, LIPA #### [facility] [address] [place] [address] Dr. Chi Melendrez Urea nitrogen [Mass/Vol] 16.0 mg/dL Normal 7.0-18.0 [facility] Comment on above: Performed By: #### C EDMAR, CATHERINE, LIPA #### [facility] [address] [address] [address] Chi Melendrez Urea nitrogen/Creatini ne [Mass ratio] 21.3 mg/mg Normal [facility] Comment on above: Performed By: #### C EDMAR, CATHERINE, LIPA #### [facility] [address] [place] [address] Dr. Chi Melendrez COVID Quick Testingon 2020 Result Negative [facility] Other Vital Signs Date Time Vital Sign Value Performing Clinician Facility 05-02-2021 14:00-0400 Body height 157.48 cm Neelam Singleton Other [facility] Other 05-02-2021 14:00-0400 Body mass index (BMI) [Ratio] 24.69 kg/m2 Neelam Singleton Other [facility] Other 05-02-2021 14:00-0400 Body temperature 98.7 [degF] Neelam Singleton Other [facility] Other 05-02-2021 14:00-0400 Body weight 61.24 kg Neelam Singleton Other [facility] Other 05-02-2021 14:00-0400 SaO2% (BldA) [Mass fraction] 97 % Neelam Singleton Other [facility] Other Encounters Encounter Date Encounter Type Care Provider Facility Start: 12-02-2023 End: 12-02-2023 ambulatory RASHAWN OLEARY Not Available Start: 11-26-2023 End: 11-26-2023 ambulatory CATHERINE ELIZABETH Not Available Start: 11-18-2023 End: 11-18-2023 ambulatory Melva Mee Facility:[facility] Start: 11-18-2023 End: 11-18-2023 ambulatory MD Heriberto Torres Work Phone: [facility] Work Phone: Start: 11-18-2023 End: 11-18-2023 Departed Referred MD Heriberto Torres Work Phone: [facility] Start: 10-17-2023 End: 10-17-2023 ambulatory Heriberto Torres Facility:[facility] Start: 10-17-2023 End: 10-17-2023 Departed Referred MD Heriberto Torres Work Phone: [facility] Start: 10-17-2023 End: 10-17-2023 ambulatory MD Heriberto Torres Work Phone: [facility] Work Phone: Start: 10-01-2023 End: 10-01-2023 ambulatory MELVA MEE Not Available Start: 09-03-2023 End: 09-03-2023 ambulatory MELVA MEE Not Available Start: 05-23-2022 End: 05-23-[address] PHI HARPER Facility:[facility] Start: 05-11-2022 End: 05-11-[address] NAZANIN BROWN Facility:[facility] Start: 05-02-2021 Office outpatient vi sit 15 minutes Neelam Singleton [facility] [place] Payers Date Payer Category Payer Self-pay 1992 Unknown [id number] 2.16.84 [id number] 1992 Unknown [id number] 2.16.84 [id number] 1992 Unknown [id number] 2.16.84 [id number] 1992 Unknown [id number] 2.16.84 [id number] 1992 Unknown [id number] 2.16.84 [id number] 1992 Unknown [id number] 2.16.84 [id number] 1992 Unknown [id number] 2.16.84 [id number] 1957 Medicaid [id number] Unknown [id number] 2.16. [id number] Social History Date Type Detail Facility Unknown if ever smoked [facility] Other Sex Assigned At Sex Assigned At Bir th [facility] Other Start: 1990 Sex Assigned At Female F [facility] Evaluation note 05-02-2021 Note Date & [...] Patient care instructions given in writting by [facility] Care At Home document. [facility] Other Evaluation note Note Date & Type Note Facility Evaluation note No assessment information availa [facility] Work Phone: History general Narrative - Reported Note Date & Type Note Facility History general Narrative - Reported Type Medical History Childbirth X1 Surgical History tonsillectomy [facility] Other Summary Purpose Family History No Family History Records Found Relationship Condition Age at Onset Recorded Date/T [...] pital DATE CREATED AUTHOR AUTHOR'S ORGANIZ ATION 11/22/2023 [facility] DATE CREATED AUTHOR AUTHOR'S ORGANIZ ATION 12/03/2023 [facility] Care Teams (unrecognized sec tion and content) Team Status: Active Member Role Status Dates Heriberto Torres MD Primary Care Provider Active Team Status: Inactive Member Role Status Dates Heriberto Torres MD Primary Care Provider Active Start: October 17, 2023 End: October 17, 2023 Melva Caban Attending Provider Active Start: Zunilda simons 2023 End: October 17, 2023 Team Status: Inactive Member Role Status Dates Heriberto Torres MD Primary Care Provider Active Start: November 18, 2023 End: November 18, 2023 Melva Caban Attending Provider Active Start: Chinmay glasgow 2023 End: November 18, 2023 Goals (unrecognized section and content) Goals [...] BE BASED ON THE PRIMARY CLINICAL RECORDS. [facility]. provides no warranty or guarantee of the accuracy or completeness of information in this document.
== END 2023-12-24 08:34 | disposition home or self-care (01) ==
LOC: CT 08:33
PROVIDERS: PCP Family Medicine; Visit Provider Surgery
DX: K63.9 Disease of intestine, unspecified (principal)
CPT/HCPCS: 74177; Q9967

== ENCOUNTER 2024-09-12 09:14 | Emergency (ER) | payer MEDICAID, SELFPAY ==
[2024-09-12 09:20] VITALS: BP 128/67; PULSE 72; TEMP 37; O2SAT 99; BMI 21.0
--- OUTSIDE RECORDS SUMMARY | 2024-09-12 09:27 | XMS_ITS | CCD ---
Author Organization [facility] Care Team Providers Care Caramel Coloring Operator Name Role Phone Neelam Singleton Unavailable DR NAZANIN BROWN Admitting Unavailable HAY, DR BACK Consulting Unavailable HAY, DR BACK Attending Unavailable MISC, DR PLUMMER Primary Care Unavailable KARASIK, DR YIP Attending Unavailable MISC, DR PLUMMER Primary Care Unavailable KARASIK, DR YIP Admitting Unavailable KARASICristopher, DR YIP Consulting Unavailable MD Heribreto Torres Primary Care Provider Melva Caban Attending Provider [phone] Melva Caban Admitting Unavailable Brian, Heriberto Primary Care Unavailable Melva Caban Attending Unavailable Brian, Heriberto Primary Care Unavailable Melva Caban Attending Unavailable Melva Caban Admitting Unavailable Heriberto Torres MD Primary Care Provider MELVA CABAN Attending Unavailable MEE, MELVA Attending Unavailable MEE, MELVA Attending Unavailable LORENE JOHNSON Attending Unavailable RASHAWN OLEARY Attending Unavailable MELVA CABAN Referring Unavailable RASHAWN OLEARY Attending Unavailable MELVA CABAN Attending Unavailable Allergies Allergy Classification Reported Allergen(s) Allergy Type Date of Onset Reaction(s) Facility (2 sources) Bacitracin / Neomycin / Polymyxin B; Translations: [Neosporin] Drug Allergy 4 [facility] Repository (6 sources) Bacitracin; Translations: [bacitracin] Drug Allergy 1 [facility] (6 sources) Neomycin; Translations: [neomycin] Drug Allergy 1 [facility] (6 sources) polymyxin B; Translations: [polymyxin B] Allergy to substance 1 [facility] (3 sources) Other Propensity to adverse reactions 3 [facility] Work Phone: Medications Current Medications Medication Drug Class(es) Dates Sig (Normalized) Sig (Original) ubrogepant 50 mg oral tablet (2 sources) Start: 08-17-2024 End: 09-16-2024 take 1 tablet by mouth every other day Ubrogepant (Ubrelvy) 50 MG tablet Indications: Intractable chronic migraine with aura and without status migrainosus (CMS/HCC) Take 1 tablet by mouth every other day 30 tablet 6 08/17/2024 09/16/2024 Active Problems Active Problems Problem Classification Problem Date Documented Date Episodic/Chronic Headache; including migraine (6 sources) Transformed migraine; Translations: [Intractable chronic migraine with aura and without status migrainosus (CMS/HCC)] Onset: 08-17-2024 08-17-2024 Chronic Immunizations and screening for infectious disease (2 sources) Contact with and (suspected) exposure to other viral communicable diseases; Translations: [Encounter for screening for human papillomavirus (HPV)] Onset: 05-02-2021 Resolved: 05-02-2021 Episodic Menstrual disorders (3 sources) Menorrhagia; Translations: [Excessive and frequent menstruation with regular cycle] Onset: 10-17-2023 10-17-2023 Chronic Nausea and vomiting (3 sources) Nausea with vomiting, unspecified; Translations: [NAUSEA WITH VOMITING UNSPECIFIED] Onset: 05-11-2022 Episodic Noninfectious gastroenteritis (1 source) Noninfective gastroenteritis and colitis, unspecified; Translations: [NONINFECTIVE GE AND COLITIS UNS] Onset: 05-15-2022 Episodic Other endocrine disorders (2 sources) Disorder of endocrine system; Translations: [Endocrine disorder, unspecified] 08-17-2024 Episodic Other female genital disorders (3 sources) Abnormal uterine bleeding; Translations: [Abnormal uterine and vaginal bleeding, unspecified] Onset: 10-17-2023 10-17-2023 Chronic Other screening for suspected conditions (not mental disorders or infectious disease) (4 sources) Encounter for screening for malignant neoplasm of cervix; Translations: [ENC SCREENING MALIG NEOPLASM CERV] Onset: 05-23-2022 Episodic Substance-related disorders (1 source) Nicotine dependence, cigarettes, uncomplicated; Translations: [NICOTINE DEPEND CIGARETTES UNCOMP] Onset: 05-15-2022 Chronic Past or Other Problems Problem Classification Problem Date Documented Date Episodic/Chronic Abdominal pain (3 sources) Pain in female pelvis; Translations: [Pelvic and perineal pain] Onset: 10-17-2023 10-17-2023 Episodic Contraceptive and procreative management (3 sources) Sterilization requested; Translations: [Encounter for sterilization] Onset: 10-17-2023 10-17-2023 Episodic Other upper respiratory infections (1 source) Acute upper respiratory infection, unspecified; Translations: [Viral upper respiratory illness J06.9] Onset: 05-02-2021 Resolved: 05-02-2021 Episodic Results Test Name Value Interpretation Reference Range Facility [facility] [place] 11-18-2023 L Specimen: [id number] Received: 11/20/23 Status: JUWAN Aquino Num: [id number] Spec Type: Surgical Subm Dr: Melva Caban Tissues: A Fallopian Tube - Sterilization (BILT FALL TUBES) Procedures: HE, Gross/Micro L2 Age/ Patient Sex Location Account Attending Physician Claudia Meadows 33/F LABELL [id number] Melva Caban SPEC NUM: [id number] RECD: 11/20/23 STATUS: JUWAN AQUINO NUM: [id number] FIDEL: 11/18/[address]: Melva Caban ENTERED: 11/20/[address] [facility] DR: Tosin,Lab SPEC TYPE: Surgical DEPT: ROSEANNE RAMSAY ENTERED BY: [id number] RECV BY: [id number] ORDERED: HE, Gross/Micro L2 ORDERED: HE, Gross/Micro [...] cm long by 1.3 cm greatest diameter. Pet Crematory Worker sections are submitted in A1?A2 RG/CYC CPT Codes 39390 -------- -------- Specimen: [id number] Received: 11/20/23 Status: JUWAN Aquino Num: [id number] Spec Type: Surgical Subm Dr: Melva Caban Tissues: A Fallopian Tube - Sterilization (BILT FALL TUBES) Procedures: David GOLDBERG/Day L2 -------- Patient: Claudia Meadows [id number] (Continued) -------- Signed (signature on file) Kavon Melendrez MD 11/20/23 [address] [facility] [place] 10-17-2023 L Specimen: [id number] Received: 10/18/23 Status: JUWAN Aquino Num: [id number] Spec Type: Surgical Subm Dr: Melva Caban Tissues: A Endometrium - Biopsy (EMBX) Procedures: HE/2, Gross/Micro L4 Age/ Patient Sex Location Account Attending Physician Claudia Meadows 33/F [place] [id number] Melva Caban SPEC NUM: [id number] RECD: 10/18/23 STATUS: JUWAN AQUINO NUM: [id number] FIDEL: 10/17/23- SUBM DR: Melva Caban ENTERED: 10/18/23 [facility] DR: Tosin,Lab SPEC TYPE: Surgical DEPT: ROSEANNE RAMSAY ORDERED: HE/2, Gross/Micro L4 ORDERED: HE/2, Gross/Micro L4 Pathological Diagnosis Endometrium, Curettage: Secretory Endometrium. Clinical Information Menorrhagia Gross Description Received in formalin labeled with the patient's name, date of and endo BX per requisition is a 2.5 x 1.2 x 0.3 cm aggregate of luu-red tissue. Entirely submitted in one cassette labeled A1. CPT Codes 18100 -------- -------- Specimen: [id number] Received: 10/18/23 Status: JUWAN Cardyamileth Num: [id number] Spec Type: Surgical Subm Dr: Melva Caban Tissues: A Endometrium - Biopsy (EMBX) Procedures: HE/2, Gross/Micro L4 -------- Patient: Claudia Meadows [id number] (Continued) -------- Signed (signature on file) Keo Hamm MD 10/21/23 1223 Normal [facility] PAP ACOG PANEL 2: 21 to 29on 05-29-2022 . . Normal [facility] Comment on above: Result Comment: Perf ormed at: BA Performed By: #### [id number] #### [facility] [address] [place] [address] Dr. Chi Melendrez Age Gdln ACOG Testing - [facility] Comment on above: Performed By: #### [id number] #### [facility] [address] [place] [address] Dr. Chi Melendrez DIAGNOSIS: Comment [facility] Comment on above: Result Comment: NEGA TIVE FOR INTRAEPITHELIAL LESION OR MALIGNANCY. Performed at: BA Performed By: #### [id number] #### [facility] [address] [place] [address] Dr. Chi Melendrez Methodology: Comment [facility] Comment on above: Result Comment: This liquid based ThinPrep(R) pap test was screened with the use of an image guided system. Performed at: WB Performed By: #### [id number] #### [facility] [address] [place] [address] Dr. Chi Melendrez Note: Comment Normal [facility] Comment on above: Result Comment: The Pap smear is a screening test designed to aid in the detection of premalignant and malignant conditions of the uterine cervix. It is not a diagnostic procedure and should not be used as the sole means of detecting cervical cancer. Both false-positive and false-negative reports do occur. . Performed at: WB Performed By: #### [id number] #### [facility] [address] [place] [address] Dr. Chi Melendrez Performed by: Comment Normal [facility] Comment on above: Result Comment: Cheo Nance, Photoengraving Etcher (ASCP) Performed at: BA Performed By: #### [id number] #### [facility] [address] [place] [address] Dr. Chi Melendrez Reflex Criteria: Comment Normal [facility] Comment on above: Result Comment: The HPV DNA reflex criteria were not met with this specimen result therefore, no HPV testing was performed. . Performed at: BA Performed By: #### [id number] #### [facility] [address] [place] [address] Dr. Chi Melendrez Specimen adequacy: Comment Normal [facility] Comment on above: Result Comment: Sati sfactory for evaluation. Endocervical and/or squamous metaplastic cells (endocervical component) are present. Performed at: BA Performed By: #### [id number] #### [facility] [address] [place] [address] Dr. Chi Melendrez AMYLASEon 05-11-2022 Amylase [Catalytic activity/Vol] 72 U/L Normal 25-115 [facility] Comment on above: Performed By: #### C MP, LORENE, LIPA #### [facility] [address] [place] [address] Dr. Chi Melendrez CBC AUTO DIFFon 05-11-2022 BASO # 0.0 103/ul Normal 0.0-0.1 [facility] Comment on above: Performed By: #### C BC #### [facility] [address] [place] [address] Dr. Chi Melendrez Basophils/100 WBC (Bld) 0.3 % Normal 0.2-2.0 [facility] Comment on above: Performed By: #### C BC #### [facility] [address] [place] [address] Dr. Chi Melendrez EO # 0.0 103/ul Normal 0.0-0.7 [facility] Comment on above: Performed By: #### C BC #### [facility] [address] [place] [address] Dr. Chi Melendrez Eosinophils/100 WBC (Bld) 0.2 % Critically low 0.9-7.0 [facility] Comment on above: Performed By: #### C BC #### [facility] [address] [place] [address] Dr. Chi Melendrez Erythrocyte distribution width (RBC) [Ratio] 12.4 % Normal 11.0-15.0 [facility] Comment on above: Performed By: #### C BC #### [facility] [address] [place] [address] Dr. Chi Melendrez Hematocrit (Bld) [Volume fraction] 39.3 % Normal 36.0-48.0 [facility] Comment on above: Performed By: #### C BC #### [facility] [address] [place] [address] Dr. Chi Melendrez Hemoglobin (Bld) [Mass/Vol] 13.1 g/dL Normal 12.0-16.0 [facility] Comment on above: Performed By: #### C BC #### [facility] [address] [place] [address] Dr. Chi Melendrez IG # 0.03 10e3/ul Normal 0.00-0.03 [facility] Comment on above: Performed By: #### C BC #### [facility] [address] [place] [address] Dr. Chi Melendrez IG % 0.3 % Normal 0.0-0.5 [facility] Comment on above: Performed By: #### C BC #### [facility] [address] [place] [address] Dr. Chi Melendrez LYMPH # 1.3 103/ul Normal 1.2-3.8 [facility] Comment on above: Performed By: #### C BC #### [facility] [address] [place] [address] Dr. Chi Melendrez Lymphocytes/100 WBC (Bld) 10.5 % Critically low 20.5-60.0 [facility] Comment on above: Performed By: #### C BC #### [facility] [address] [place] [address] Dr. Chi Melendrez MANUAL DIFF REQ NO Normal [facility] Comment on above: Performed By: #### C BC #### [facility] [address] [place] [address] Dr. Chi Melendrez MCH (RBC) [Entitic mass] 29.8 pg Normal 26.7-34.0 [facility] Comment on above: Performed By: #### C BC #### [facility] [address] [place] [address] Dr. Chi Melendrez MCHC (RBC) [Mass/Vol] 33.3 g/dL Normal 29.9-35.2 [facility] Comment on above: Performed By: #### C BC #### [facility] [address] [place] [address] Dr. Chi Melendrez MCV (RBC) [Entitic vol] 89.5 fL Normal 81.0-99.0 [facility] Comment on above: Performed By: #### C BC #### [facility] [address] [place] [address] Dr. Chi Melendrez MONO # 0.6 103/ul Normal 0.3-0.8 [facility] Comment on above: Performed By: #### C BC #### [facility] [address] [place] [address] Dr. Chi Melendrez Monocytes/100 WBC (Bld) 4.6 % Normal 1.7-12.0 [facility] Comment on above: Performed By: #### C BC #### [facility] [address] [place] [address] Dr. Chi Melendrez NEUT # 10.0 103/ul Critically high 1.4-6.[address] [facility] Comment on above: Performed By: #### C BC #### [facility] [address] [place] [address] Dr. Chi Melendrez Neutrophils/100 WBC (Bld) 84.1 % Critically high 43.0-75.0 [facility] Comment on above: Performed By: #### C BC #### [facility] [address] [place] [address] Dr. Chi Melendrez Platelet mean volume (Bld) [Entitic vol] 11.5 fL Normal 9.5-13.5 [facility] Comment on above: Performed By: #### C BC #### [facility] [address] [place] [address] Dr. Chi Melendrez PLT 268 103/ul Normal 150-450 [facility] Comment on above: Performed By: #### C BC #### [facility] [address] [place] [address] Dr. Chi Melendrez RBC 4.39 106/ul Normal 4.20-5.40 [facility] Comment on above: Performed By: #### C BC #### [facility] [address] [place] [address] Dr. Chi Melendrez WBC 11.9 103/ul Critically high 4.0-11.[address] [facility] Comment on above: Performed By: #### C BC #### [facility] [address] [place] [address] Dr. Chi Melendrez LIPASEon 05-11-2022 Lipase [Catalytic activity/Vol] 101.0 U/L Normal 73.0-393.0 [facility] Comment on above: Performed By: #### C LORENE HYATT LIPA #### [facility] [address] [place] [address] Dr. Chi Melendrez PROF 14(COMP METB)on 022 Albumin [Mass/Vol] 4.2 g/dL Normal 3.4-5.0 [facility] Comment on above: Performed By: #### C MP, LORENE, LIPA #### [facility] [address] [address] [address] Chi Melendrez Albumin/Globulin [Mass ratio] 1.2 {ratio} Normal [facility] Comment on above: Performed By: #### C MP, LORENE, LIPA #### [facility] [address] [address] [address] Chi Melendrez ALP [Catalytic activity/Vol] 67 U/L Normal 46-116 [facility] Comment on above: Performed By: #### C MP, LORENE, LIPA #### [facility] [address] [address] [address] Chi Melendrez ALT [Catalytic activity/Vol] 17 U/L Normal 14-59 [facility] Comment on above: Performed By: #### C MP, LORENE, LIPA #### [facility] [address] [place] [address] Dr. Chi Melendrez Anion gap [Moles/Vol] 10.1 mmol/L Normal [facility] Comment on above: Performed By: #### C MP, LORENE, LIPA #### [facility] [address] [address] [address] Chi Melendrez AST [Catalytic activity/Vol] 13 U/L Critically low 15-37 [facility] Comment on above: Performed By: #### C MP, LORENE, LIPA #### [facility] [address] [address] [address] Chi Melendrez Bilirubin [Mass/Vol] 0.5 mg/dL Normal 0.2-1.0 [facility] Comment on above: Performed By: #### C MP, LORENE, LIPA #### [facility] [address] [address] [address] Chi Melendrez Calcium [Mass/Vol] 9.2 mg/dL Normal 8.5-10.1 [facility] Comment on above: Performed By: #### C MP, LORENE, LIPA #### [facility] [address] [address] [address] Chi Melendrez Chloride [Moles/Vol] 104 mmol/L Normal 98-107 [facility] Comment on above: Performed By: #### C MP, LORENE, LIPA #### [facility] [address] [address] [address] Chi Melendrez CO2 [Moles/Vol] 27.8 mmol/L Normal 21.0-32.0 [facility] Comment on above: Performed By: #### C MP, LORENE, LIPA #### [facility] [address] [address] [address] Chi Melendrez Creatinine [Mass/Vol] 0.75 mg/dL Normal 0.55-1.02 [facility] Comment on above: Performed By: #### C MP, LORENE, LIPA #### [facility] [address] [address] [address] Chi Melendrez EGFR-AF BELARUSIAN >60 Normal >=60 [facility] Comment on above: Performed By: #### C MP, LORENE, LIPA #### [facility] [address] [address] [address] Chi Melendrez EGFR-NON AF BELARUSIAN >60 Normal >=60 [facility] Comment on above: Performed By: #### C MP, LORENE, LIPA #### [facility] [address] [address] [address] Chi Melendrez Globulin (S) [Mass/Vol] 3.4 g/dL Normal [facility] Comment on above: Performed By: #### C MP, LORENE, LIPA #### [facility] [address] [address] [address] Chi Melendrez Glucose [Mass/Vol] 117 mg/dL Critically high 74-106 [facility] Comment on above: Performed By: #### C MP, LORENE, LIPA #### [facility] [address] [address] [address] Chi Melendrez Potassium [Moles/Vol] 3.9 mmol/L Normal 3.5-5.1 [facility] Comment on above: Performed By: #### C MP, LORENE, LIPA #### [facility] [address] [address] [address] Chi Melendrez Protein [Mass/Vol] 7.6 g/dL Normal 6.4-8.2 [facility] Comment on above: Performed By: #### C LORENE HYATT LIPA #### [facility] [address] [address] [address] Chi Melendrez Sodium [Moles/Vol] 138 mmol/L Normal 136-145 [facility] Comment on above: Performed By: #### C LORENE HYATT LIPA #### [facility] [address] [place] [address] Dr. Chi Melendrez Urea nitrogen [Mass/Vol] 16.0 mg/dL Normal 7.0-18.0 [facility] Comment on above: Performed By: #### C LORENE HYATT LIPA #### [facility] [address] [place] [address] Dr. Chi Melendrez Urea nitrogen/Creatini ne [Mass ratio] 21.3 mg/mg Normal [facility] Comment on above: Performed By: #### C LORENE HYATT LIPA #### [facility] [address] [place] [address] Dr. Chi Melendrez COVID Quick Testingon 2020 Result Negative [facility] Other Vital Signs Date Time Vital Sign Value Performing Clinician Facility 08-17-2024 13:26-0500 Body height 157.5 cm [facility] Work Phone: [facility] 08-17-2024 13:26-0500 Body mass index (BMI) [Ratio] 21.03 kg/m2 [facility] Work Phone: [facility] 08-17-2024 13:26-0500 Body weight 52.16 kg [facility] Work Phone: [facility] 08-17-2024 13:26-0500 Diastolic blood pressure 70 mm[Hg] [facility] Work Phone: [facility] 08-17-2024 13:26-0500 Systolic blood pressure 110 mm[Hg] [facility] Work Phone: [facility] 05-02-2021 14:00-0400 Body height 157.48 cm Neelam Singleton Other [facility] Other 05-02-2021 14:00-0400 Body mass index (BMI) [Ratio] 24.69 kg/m2 Neelam Singleton Other [facility] Other 05-02-2021 14:00-0400 Body temperature 98.7 [degF] Neelam Singleton Other [facility] Other 05-02-2021 14:00-0400 Body weight 61.24 kg Neelam Singleton Other [facility] Other 05-02-2021 14:00-0400 SaO2% (BldA) [Mass fraction] 97 % Neelam Singleton Other [facility] Other Encounters Encounter Date Encounter Type Care Provider Facility Start: 08-17-2024 End: 08-17-2024 Bamboo flowsheet Melva Mee DO Work Phone: [facility] Start: 08-17-2024 End: 08-17-2024 Bamboo flowsheet Melva Mee DO Work Phone: [facility] Start: 08-17-2024 End: 08-17-2024 ambulatory MELVA MEE Not Available Start: 08-17-2024 End: 08-17-2024 Office outpatient visit 15 minutes Melva Mee DO Work Phone: [facility] Comment on above: Intractable chronic migraine with aura and without status migrainosus (CMS/HCC); Hormone imbalance; Other migraine without status migrainosus, intractable (CMS/HCC) Start: 01-27-2024 End: 01-27-2024 ambulatory RASHAWN ANIRUDH Not Available Start: 12-02-2023 End: 12-02-2023 ambulatory RASHAWN ANIRUDH Not Available Start: 11-26-2023 End: 11-26-2023 ambulatory LORENE JOHNSON Not Available Start: 11-18-2023 End: 11-18-2023 ambulatory MD Heriberto Torres Work Phone: [facility] Work Phone: Start: 11-18-2023 End: 11-18-2023 Departed Referred MD Heriberto Torres Work Phone: [facility] Start: 10-17-2023 Preprocedural examin ation done Melva Mee DO Work Phone: [facility] Start: 10-17-2023 End: 10-17-2023 ambulatory MD Heriberto Torres Work Phone: [facility] Work Phone: Start: 10-17-2023 End: 10-17-2023 Departed Referred MD Heriberto Torres Work Phone: [facility] Start: 10-17-2023 End: 10-17-2023 ambulatory MELVA MEE Not Available Start: 10-01-2023 End: 10-01-2023 ambulatory MELVA MEE Not Available Start: 09-03-2023 End: 09-03-2023 ambulatory MELVA MEE Not Available Start: 05-23-2022 End: 05-23-[address] PHI HARPER Facility:[facility] Start: 05-11-2022 End: 05-11-[address] NAZANIN BROWN Facility:[facility] Start: 05-02-2021 Office outpatient vi sit 15 minutes Neelam Singleton [facility] Plan of Treatment Date Care Activity Detail Author Start: 10-06-2024 End: 10-06-2024 Patient encounter procedure 10/06/2024 11:00 AM EST Office Visit [facility] [address] [place] [id number] Mee, Melva, DO [address] [place] [address] [facility] Payers Date Payer Category Payer Self-pay 2023 Medicaid [facility] [id number] 1992 Unknown [id number] 1992 Unknown [id number] [id number] 1992 Unknown [id number] [id number] 1992 Unknown [id number] [id number] 1992 Unknown [id number] [id number] 1992 Unknown [id number] [id number] 1992 Unknown [id number] [id number] 1992 Unknown [id number] [id number] 1992 Unknown [id number] 1957 Medicaid [id number] Unknown [id number]. [id number] Social History Date Type Detail Facility Unknown if ever smoked [facility] Other Start: 01-27-2024 Sex Assigned At N 360pi Other Start: 1990 Sex Assigned At Female F [facility] Start: 01-27-2024 [facility] tobacco smoker [facility] Start: 01-27-2024 Tobacco use and exposure Smokeless tobacco non-user [facility] Start: 01-27-2024 End: 08-17-2024 Alcoholic beverage intake Ex-drinker (finding) [facility] Start: 01-27-2024 History of Social function [facility] Start: 12-02-2023 Tobacco Comment Smokeless nicotine [facility] Start: 01-27-2024 Alcohol Comment Rarely drink [facility] Start: 1990 Sex assigned at Not on file N [facility] History of Present illness Narrative 08-17-2024 Jesica Smith, BUTTONHOLER - 08/17/2024 1:10 PM EST Note Date & Type Note Facility 08-17-2024 History of Presen t illness Narrative Reason for Appointment: Patient ID: Claudia Meadows is a 34 y.o. female who presents for migraines and hormone imbalance Patient presents today for Consult appointment. MEDICATIONS No current outpatient medications ALLERGIES Allergies Allergen Reactions Bacitracin Hives Neomycin Hives Other Other Reaction(s): Dermatitis Ldeqwsfz-Enejuouiuch-Cwubttjfq Polymyxin B Hives PROBLEMS Active Ambulatory Problems Diagnosis Date Noted Menorrhagia with regular cycle 10/17/2023 Request for sterilization 10/17/2023 Pre-operative exam 10/17/2023 Abnormal uterine bleeding (AUB) 10/17/2023 Pelvic pain in female 10/17/2023 Resolved Ambulatory Problems Diagnosis Date Noted No Resolved Ambulatory Problems No Additional Past Medical History HISTORY PAST MEDICAL HISTORY SOCIAL HISTORY History reviewed. No pertinent past medical history. Social History Tobacco Use Smoking status: Some Days Smokeless tobacco: Never Tobacco comments: Smokeless nicotine Substance Use Topics Alcohol use: Not Currently Comment: Rarely drink Drug use: Not Currently Frequency: 7.0 times per week Types: Marijuana FAMILY HISTORY Family History Problem Relation Name Age of Onset Diverticulitis Mother Lorene meadows Depression Mother Lorene monroyrill Hypertension Mother Lorene meadows No Known Problems Father No Known Problems Brother No Known Problems Daughter No Known Problems Maternal Grandmother No Known Problems Maternal Grandfather No Known Problems Paternal Grandmother Alcohol abuse Paternal Grandfather Cancer Mother's Sister SURGICAL HISTORY Past Surgical History: Procedure Laterality Date ENDOMETRIAL ABLATION 11/18/2023 LAPAROSCOPY DIAGNOSTIC / BIOPSY / ASPIRATION / LYSIS 11/18/2023 TUBAL LIGATION REVIEW OF SYSTEMS Review of Systems: Review of Systems All other systems reviewed and are negative. OBJECTIVE Objective: Physical Exam Constitutional: Appearance: Normal appearance. She is well-developed. Cardiovascular: Rate and Rhythm: Normal rate and regular rhythm. Pulmonary: Effort: Pulmonary effort is normal. Breath sounds: Normal breath sounds. Abdominal: General: Bowel sounds are normal. There is no distension. Palpations: Abdomen is soft. Tenderness: There is no abdominal tenderness. There is no guarding or rebound. Musculoskeletal: General: No swelling. Normal range of motion. Right lower leg: No edema. Left lower leg: No edema. Neurological: Mental Status: She is alert and oriented to person, place, and time. Skin: General: Skin is warm and dry. Psychiatric: Mood and Affect: Mood normal. Behavior: Behavior normal. Vitals and nursing note reviewed. Exam conducted with a timber hewer present. Vitals: Estimated body mass index is 21.03 kg/m as calculated from the following: Height as of this encounter: 5' 2 . Weight as of this encounter: 115 lb. BP: 110/70 No LMP recorded. Patient has had an ablation. ASSESSMENT & PLAN ICD-10-CM 1. Intractable chronic migraine with aura and without status migrainosus (CMS/HCC) G43.E19 2. Hormone imbalance E34.9 Patient presents today for migraines after ablation. Ubrelvy will be sent to pharmacy to help with symptoms. Patient to return to clinic for annual appointment. Documented by Jesica Smith LPN on behalf of: Melva Caban DO documented in this encounter [facility] Evaluation note 05-02-2021 Note Date & Type [...] Patient care instructions given in writting by [facility] document. [employer] Other Evaluation note Note Date & Type Note Facility Evaluation note No assessment information availa [facility] Work Phone: Evaluation note Note Date & Type Note Facility Evaluation note Diagnosis Intractable chronic migraine with aura and without status migrainosus (CMS/HCC) Hormone imbalance Other migraine without status migrainosus, intractable (CMS/HCC) documented in this encounter [facility] History general Narrative - Reported Note Date & Type Note Facility History general Narrative - Reported Type Medical History Childbirth X1 Surgical History tonsillectomy [employer] [facility] Other Summary Purpose Family History No Family History Records Found Relationship Condition Age at Onset Recorded Date/T pedrito Not Specified Hypertension Unknown Advance Directives No Advanced Directives Records FoundNo Advanced Directives Records FoundNo Advanced Directives Records Found Additional Source Comments REASON FOR VISIT (unrecogniz ed section and content) Reason Comments migraines hormone imbalance INFORMATION SOURCE (unrecogn ized section and content) DATE CREATED AUTHOR 05/30/2022 [facility] DATE CREATED AUTHOR AUTHOR'S ORGANIZ ATION 01/29/2024 [facility] DATE CREATED AUTHOR AUTHOR'S ORGANIZ ATION 08/20/2024 [facility] Care Teams (unrecognized sec tion and content) Team Status: Active Member Role Status Dates Heriberto Torres MD Primary Care Provider Active Team Status: Inactive Member Role Status Dates Heriberto Torres MD Primary Care Provider Active Start: October 17, 2023 End: October 17, 2023 Melva Caban Attending Provider Active Start: [facility] 2023 End: October 17, 2023 Team Status: Inactive Member Role Status Dates Heriberto Torres MD Primary Care Provider Active Start: November 18, 2023 End: November 18, 2023 Melva Caban Attending Provider Active Start: 2023 End: November 18, 2023 [employer] Relationship Specialty Start Date End Date Heriberto Torres MD [address] [place] [address] PCP - [facility] Medicine 09/03/23 [employer] Operator Relationship Specialty Start Date End Date Heriberto Torres MD [address] [place] [address] PCP - General [facility] Medicine 09/03/23 Goals (unrecognized section and content) Goals may [...] BE BASED ON THE PRIMARY CLINICAL RECORDS. [facility] [employer] [facility]. provides no warranty or guarantee of the accuracy or completeness of information in this document.
[2024-09-12 09:40] LABS: Basophils Percent Auto 0.2 % (0.2-2.0); Hematocrit 41.1 % (36.0-48.0); Hemoglobin 13.5 g/dL (12.0-16.0); Immature Granulocytes Abs Auto 0.06 10^3/uL (0.00-0.03); Immature Granulocytes Pct Auto 0.3 % (0.0-0.5); Lymphocytes Absolute Auto 0.8 10^3/uL (1.2-3.8); Mean Corpuscular HGB Conc 32.8 g/dL (29.9-35.2); Mean Corpuscular Hemoglobin 29.6 pg (26.7-34.0); Mean Corpuscular Volume 90.1 fL (81.0-99.0); Monocytes Absolute Auto 0.8 10^3/uL (0.3-0.8); Neutrophils Absolute Auto 17.7 10^3/uL (1.4-6.5); Neutrophils Percent Auto 91.5 % (43.0-75.0); Platelet Count 236 10^3/uL (150-450); Red Blood Count 4.56 10^6/uL (4.20-5.40); Red Cell Distribution Width 12.7 % (11.0-15.0); White Blood Count 19.3 10^3/uL (4.0-11.0)
[2024-09-12] MEDS: ONDANSETRON PF 4 MG/2 ML VIAL IV (09:41)
[2024-09-12] MEDS: 0.9 % SODIUM CHLORIDE 1,000 ML 1000 ML IV (09:41)
[2024-09-12] MEDS: KETOROLAC TROMETHAMINE 30 MG/ML VIAL 15 MG IVP (09:41)
[2024-09-12 09:49] LABS: HCG Qualitative NEGATIVE (NEGATIVE); Internal Control Within Normal Limits
[2024-09-12 09:54] LABS: Alanine Aminotransferase 15 U/L (14-59); Albumin Globulin Ratio 1.3; Albumin Level 4.3 g/dL (3.4-5.0); Alkaline Phosphatase 67 U/L (46-116); Aspartate Amino Transferase 18 U/L (15-37); BUN Creatinine Ratio 18.3; Bilirubin Total 0.8 mg/dL (0.2-1.0); Carbon Dioxide 22.8 mmol/L (21.0-32.0); Chloride 103 mmol/L (98-107); Estimated GFR (African America >60 (>=60 mL/min/1.73m^2); Estimated GFR (Non-African Ame >60 (>=60 mL/min/1.73m^2); Globulin 3.3 g/dL; Glucose 182 mg/dL (74-106); Potassium 3.8 mmol/L (3.5-5.1); Sodium 140 mmol/L (136-145); Total Protein 7.6 g/dL (6.4-8.2)
[2024-09-12] MEDS: PROCHLORPERAZINE 10 MG/2 ML VIAL IV (10:31)
[2024-09-12 10:35] VITALS: BP 120/78; PULSE 71; O2SAT 99
[2024-09-12] MEDS: ONDANSETRON 4 MG RAPDIS TABLET SL (10:55)
--- NOTE | 2024-09-12 12:14 | ED_ITS ---
HPI - Nausea/Vomiting/Diarrhea General Chief complaint: Nausea/Vomiting/Diarrhea Stated complaint: VOMITING, DIARRHEA Time Seen by Provider: 09/12/24 09:23 Source: patient Mode of arrival: Wheelchair Limitations: no limitations History of Present Illness HPI Narrative: The patient has been exposed to multiple family members at home have influenza A, This morning at 1 AM with nausea and vomiting and after 3 hours she started having diarrhea too, the patient denies any abdominal pain she mentioned that she only have some epigastric discomfort from throwing up No blood in vomiting or diarrhea Related Data Home Medications ?Medication ?Instructions ?Recorded ?Confirmed copper 380 square mm intrauterine intrauterine 11/12/23 device (ParaGard T 380A) Previous Rx's ?Medication ?Instructions ?Recorded famotidine 20 mg tablet (Pepcid) 20 mg PO BID #10 tabs 09/12/24 ondansetron 4 mg disintegrating 4 mg PO Q8H PRN nausea and 09/12/24 tablet vomiting 48 hours #10 tabs Allergies Allergy/AdvReac Type Severity Reaction Status Date / Time bacitracin (From Neosporin Allergy Rash Verified 11/18/23 06:33 ([id number])) neomycin (From Neosporin Allergy Rash Verified 11/18/23 06:33 ([id number])) polymyxin B (From Neosporin Allergy Rash Verified 11/18/23 06:33 ([id number])) acetaminophen (From Percocet) AdvReac Intermediate Vomiting Verified 11/18/23 06:33 oxycodone (From Percocet) AdvReac Intermediate Vomiting Verified 11/18/23 06:33 Review of Systems ROS Status of ROS 10 or more systems reviewed and unremark able except as noted in history and below [facility] Medical History (Updated 09/12/24 @ 11:17 by Carlie Jensen MD) Anemia ?D64.9 - Anemia, unspecified (ICD-10) PTSD (post-traumatic stress disorder) ?F43.10 - Post-traumatic stress disorder, unspecified (ICD-10) Depression ?F32.A - Depression, unspecified (ICD-10) Anxiety ?F41.9 - Anxiety disorder, unspecified (ICD-10) Panic attacks ?F41.0 - Panic disorder [episodic paroxysmal anxiety] (ICD-10) Migraine ?G43.909 - Migraine, unspecified, not intractable, without status migrainosus (ICD-10) Heartburn ?R12 - Heartburn (ICD-10) Request for sterilization ?Z30.2 - Encounter for sterilization (ICD-10) Pelvic pain ?R10.2 - Pelvic and perineal pain (ICD-10) Abnormal uterine bleeding ?N93.9 - Abnormal uterine and vaginal bleeding, unspecified (ICD-10) Menorrhagia ?N92.0 - Excessive and frequent menstruation with regular cycle (ICD-10) Surgical History (Updated 11/12/23 @ 11:20 by Areli Craig NP) History of tonsillectomy ?Z90.89 - Acquired absence of other organs (ICD-10) Family History (Updated 11/12/23 @ 11:20 by Areli Craig NP) Other Family history of gastric cancer Family history of heart disease Family history of hypertension Social History (Updated 11/12/23 @ 11:15 by Areli Craig NP) Within the past year, how often did you have a drink containing alcohol: monthl y or less Smoking status: Former smoker Do you use any of these nicotine containing products: vaping products Non-prescribed substance use: cannabis (any form) Previous occupational history: housekeeping Highest level of school completed/degree received: high school graduate Exam Narrative Exam Narrative: Nurses notes and vital signs reviewed and patient is not hypoxic. General: Well-appearing and in no apparent distress. Skin: Warm, dry, no pallor noted. No rash. Head: Normocephalic, atraumatic. Neck: Supple, non-tender. Eye: Pupils are equal, round and EOMI. No scleral icterus. Ears, Nose, Mouth, and Throat: TM are clear, no nasal mucosal hypertrophy. Oral mucosa is moist, no posterior oropharynx erythema, uvula is mid-line Cardiovascular: Regular Rate and Rhythm without murmur, gallop or rub. Respiratory: No accessory muscle use or respiratory distress. Lungs are clear to auscultation, no wheezing, rales or rhonchi Chest Wall: no tenderness Back: No midline thoracic or lumbar vertebral tenderness. No CVA tenderness Musculoskeletal: normal ROM, no calf or popliteal tenderness, no lower extremit y edema/swelling GI: Abdomen is soft, non-distended. Normal bowel sounds. No masses appreciated. No tenderness to palpation. No rebound, guarding, or rigidity noted. Neurological: A&O x4. No cranial nerve dysfunction observed. No truncal ataxia. Moves all extremities. Sensation intact. Psychiatric: Cooperative and interactive. Normal mood and affect. Constitutional Vital Signs, click to edit/add: Last Vital Signs Temp 98.6 F 09/12/24 09:20 Pulse 71 09/12/24 10:35 Resp 18 09/12/24 10:35 BP 120/78 09/12/24 10:35 Pulse Ox 99 09/12/24 10:35 O2 Del Method Room Air 09/12/24 09:20 Course Vital Signs Vital signs: Vital Signs Temperature 98.6 F 09/12/24 09:20 Pulse Rate 72 09/12/24 09:20 Respiratory Rate 18 09/12/24 09:20 Blood Pressure 128/67 09/12/24 09:20 Pulse Oximetry 99 09/12/24 09:20 Oxygen Delivery Method Room Air 09/12/24 09:20 Temperature 98.6 F 09/12/24 09:20 Pulse Rate 71 09/12/24 10:35 Respiratory Rate 18 09/12/24 10:35 Blood Pressure 120/78 09/12/24 10:35 Pulse Oximetry 99 09/12/24 10:35 Oxygen Delivery Method Room Air 09/12/24 09:20 MDM - Nausea/Vomiting/Diarrhea MDM Narrative Medical decision making narrative: The patient CBC did show some leukocytosis with mostly reactive but the patient does not have any abdominal pain Chemistry was within normal The patient initially was provided with 1 L of fluid in addition to Zofran IV that did not help as much at the sublingual 1 Patient was discharged with supportive care and hydration as instruction, The patient is to follow up with primary care physician in next 2-3 days or to return to the emergency department should any of the signs or symptoms worsen or new symptoms develop. The patient agrees with the following Diagnosis and Treatment plan and the patient will be discharged home. Lab Data Labs: Lab Results 09/12/24 Range/Units 09:25 WBC 19.3 H (4.0-11.0) 10^3/uL RBC 4.56 (4.20-5.40) 10^6/uL Hgb 13.5 (12.0-16.0) g/dL Hct 41.1 (36.0-48.0) % MCV 90.1 (81.0-99.0) fL MCH 29.6 (26.7-34.0) pg MCHC 32.8 (29.9-35.2) g/dL RDW 12.7 (11.0-15.0) % Plt Count 236 (150-450) 10^3/uL MPV 12.0 (9.5-13.5) fL Neut % (Auto) 91.5 H (43.0-75.0) % Lymph % (Auto) 4.0 L (20.5-60.0) % [place] % (Auto) 4.0 (1.7-12.0) % Eos % (Auto) 0.0 L (0.9-7.0) % Baso % (Auto) 0.2 (0.2-2.0) % Neut # (Auto) 17.7 H (1.4-6.5) 10^3/uL Lymph # (Auto) 0.8 L (1.2-3.8) 10^3/uL [place] # (Auto) 0.8 (0.3-0.8) 10^3/uL Eos # (Auto) 0.0 (0.0-0.7) 10^3/uL Baso # (Auto) 0.0 (0.0-0.1) 10^3/uL Abs Immat Gran (auto) 0.06 H (0.00-0.03) 10^3/uL Imm/Tot Granulo (auto) 0.3 (0.0-0.5) % Sodium 140 (136-145) mmol/L Potassium 3.8 (3.5-5.1) mmol/L Chloride 103 (98-107) mmol/L Carbon Dioxide 22.8 (21.0-32.0) mmol/L Anion Gap 18.0 BUN 17.0 (7.0-18.0) mg/dL Creatinine 0.93 (0.55-1.02) mg/dL Est GFR ( Amer) >60 (>=60 mL/min/1.73m^2) Est GFR (Non-Af Amer) >60 (>=60 mL/min/1.73m^2) BUN/Creatinine Ratio 18.3 Glucose 182 H (74-106) mg/dL Calcium 9.0 (8.5-10.1) mg/dL Total Bilirubin 0.8 (0.2-1.0) mg/dL AST 18 (15-37) U/L ALT 15 (14-59) U/L Alkaline Phosphatase 67 (46-116) U/L Total Protein 7.6 (6.4-8.2) g/dL Albumin 4.3 (3.4-5.0) g/dL Globulin 3.3 g/dL Albumin/Globulin Ratio 1.3 Serum HCG, Qual Negative (NEGATIVE) Discharge Plan Discharge Chief Complaint: Nausea/Vomiting/Diarrhea Clinical Impression: Gastroenteritis Patient Disposition: Home, Self-Care Time of Disposition Decision: 11:17 Condition: Good Prescriptions / Home Meds: New famotidine [Pepcid] 20 mg tablet 20 mg PO BID Qty: 10 0RF ondansetron 4 mg tablet,disintegrating 4 mg PO Q8H PRN (Reason: nausea and vomiting) 2 Days Qty: 10 0RF No Action ParaGard T 380A 380 square mm intrauterine device intrauterine Print Language: Spanish Instructions: Gastroenteritis (DC) Referrals: ARAM CABRERA [Primary Care Provider] - 1 week Discharge Date/Time: 09/12/24 11:25
== END 2024-09-12 11:25 | disposition home or self-care (01) ==
PROVIDERS: Emergency Provider Emergency Medicine; PCP Family Medicine
DX: K52.9 Noninfective gastroenteritis and colitis, unspecified (principal); Z87.891 Personal history of nicotine dependence
CPT/HCPCS: 36415; 80053; 84703; 85025; 96361; 96374; 96375; 99284; J0780; J1885; J2405; Q0162

== ENCOUNTER 2024-10-06 15:42 | Outpatient (REF) | payer MEDICAID, SELFPAY ==
--- OUTSIDE RECORDS SUMMARY | 2024-10-06 16:05 | XMS_ITS | CCD ---
Author Organization [facility] Care Team Providers Care Technical Supervisor Name Role Phone Neelam Singleton Unavailable DR NAZANIN BROWN Admitting Unavailable HAY, DR BACK Consulting Unavailable HAY, DR BACK Attending Unavailable MISC, DR PLUMMER Primary Care Unavailable KARASIK, DR YIP Attending Unavailable MISC, DR PLUMMER Primary Care Unavailable KARASIK, DR YIP Admitting Unavailable KARASICristopher, DR YIP Consulting Unavailable MD Heriberto Torres Primary Care Provider [phone] Melva Caban Attending Provider [phone] Melva Caban Admitting Unavailable Brian, Heriberto Primary Care Unavailable Melva Caban Attending Unavailable Brian, Heriberto Primary Care Unavailable Mee, Melva Attending Unavailable Melva Caban Admitting Unavailable Heriberto [...] Polymyxin B; Translations: [Neosporin] Drug Allergy 4 [facility] (6 sources) Bacitracin; Translations: [bacitracin] Drug Allergy 1 [facility] (6 sources) Neomycin; Translations: [neomycin] Drug Allergy 1 [facility] (6 sources) polymyxin B; Translations: [polymyxin B] Allergy to substance 1 [facility] (3 sources) Other Propensity to adverse [...] [facility] [place] [facility]18-[facility]23 L Specimen: [id number] Received: 11/20/23 Status: JUWAN Aquino Num: [id number] Spec Type: Surgical Subm Dr: Melva Caban Tissues: A Fallopian Tube - Sterilization (BILT FALL TUBES) Procedures: HE, Gross/Micro L2 Age/ Patient Sex Location Account Attending Physician Claudia Meadows 33/F LABELL [id number] Melva Caban SPEC NUM: [id number] RECD: 11/20/23 STATUS: JUWAN AQUINO NUM: [id number] FIDEL: 11/18/[address]: Melva Caban ENTERED: 11/20/23 [facility] DR: Tosin,Lab SPEC TYPE: Surgical DEPT: ROSEANNE RAMSAY ENTERED BY: [id number] RECV BY: [id number] ORDERED: HE, Gross/Micro L2 ORDERED: HE, Gross/Micro [...] cm long by 1.3 cm greatest diameter. Flame Degreaser sections are submitted in A1?A2 RG/CYC CPT Codes 37897 -------- -------- Specimen: [id number] Received: 11/20/23 Status: JUWAN Aquino Num: [id number] Spec Type: Surgical Subm Dr: Melva Caban Tissues: A Fallopian Tube - Sterilization (BILT FALL TUBES) Procedures: David GOLDBERG/Day L2 -------- Patient: Claudia Meadows [id number] (Continued) -------- Signed (signature on file) Kavon Melendrez MD 11/20/23 8937 [facility] 10-17-2023 L Specimen: [id number] Received: 10/18/23 Status: JUWAN Aquino Num: [id number] Spec Type: Surgical Subm Dr: Melva Caban Tissues: A Endometrium - Biopsy (EMBX) Procedures: HE/2, Gross/Micro L4 Age/ Patient Sex Location Account Attending Physician Claudia Meadows 33/F [facility] [id number] Melva Caban SPEC NUM: [id number] RECD: 10/18/23 STATUS: JUWAN AQUINO NUM: [id number] FIDEL: 10/17/23- SUBM DR: Melva Caban ENTERED: 10/18/23 [facility] DR: Tosin,Lab SPEC TYPE: Surgical DEPT: ROSEANNE RAMSAY ORDERED: HE/2, Gross/Micro L4 ORDERED: HE/2, Gross/Micro L4 Pathological Diagnosis Endometrium, Curettage: Secretory Endometrium. Clinical Information Menorrhagia Gross Description Received in formalin labeled with the patient's name, date of and endo BX per requisition is a 2.5 x 1.2 x 0.3 cm aggregate of luu-red tissue. Entirely submitted in one cassette labeled A1. CPT Codes 66320 -------- -------- Specimen: [id number] Received: 10/18/23 Status: JUWAN Cardyamileth Num: [id number] Spec Type: Surgical Subm Dr: Melva Caban Tissues: A Endometrium - Biopsy (EMBX) Procedures: HE/2, Gross/Micro L4 -------- Patient: Claudia Meadows [id number] (Continued) -------- Signed (signature on file) Keo Hamm MD 10/21/23 1223 Normal [facility] PAP ACOG PANEL 2: 21 to 29on 05-29-2022 . . Normal [facility] Comment on above: Result Comment: Perf ormed at: BA Performed By: #### [id number] #### [facility] [address] [place] [address] Dr. Chi Melendrez Age Gdln ACOG Testing - [facility] Comment on above: Performed By: #### [id number] #### [facility] [address] [place] [address] Dr. Chi Melendrez DIAGNOSIS: Comment [facility] Comment on above: Result Comment: NEGA TIVE FOR INTRAEPITHELIAL LESION OR MALIGNANCY. Performed at: BA Performed By: #### [id number] #### [facility] [address] [place] [address] Dr. Chi Melendrez Methodology: Comment [facility] Comment on above: Result Comment: This liquid based ThinPrep(R) pap test was screened with the use of an image guided system. Performed at: WB Performed By: #### [id number] #### [facility] [address] [place] [address] Dr. Chi Melendrez Note: Comment Normal [facility] Comment on above: Result Comment: The Pap smear is a screening test designed to aid in the detection of premalignant and malignant conditions of the uterine cervix. It is not a diagnostic procedure and should not be used as the sole means of detecting cervical cancer. Both false-positive and false-negative reports do occur. . Performed at: WB Performed By: #### [id number] #### [facility] [address] [place] [address] Dr. Chi Melendrez Performed by: Comment Normal [facility] Comment on above: Result Comment: Cheo Nance, Slip Sheeter (ASCP) Performed at: BA Performed By: #### [id number] #### [facility] [address] [place] [address] Dr. Chi Melendrez Reflex Criteria: Comment Normal [facility] Comment on above: Result Comment: The HPV DNA reflex criteria were not met with this specimen result therefore, no HPV testing was performed. . Performed at: BA Performed By: #### [id number] #### [facility] [address] [place] [address] Dr. Chi Melendrez Specimen adequacy: Comment Normal [facility] Comment on above: Result Comment: Sati sfactory for evaluation. Endocervical and/or squamous metaplastic cells (endocervical component) are present. Performed at: BA Performed By: #### 4 [id number] #### [facility] [address] [place] [address] Dr. Chi Melendrez AMYLASEon 05-11-2022 Amylase [Catalytic activity/Vol] 72 U/L Normal 25-115 [facility] Comment on above: Performed By: #### C MP, LORENE, LIPA #### [facility] [address] [place] [address] Dr. Chi Melendrez CBC AUTO DIFFon 05-11-2022 BASO # 0.0 103/ul Normal 0.0-0.1 [facility] Comment on above: Performed By: #### C BC #### [facility] [address] [place] [address] Dr. Chi Melendrez Basophils/100 WBC (Bld) 0.3 % Normal 0.2-2.0 [facility] Comment on above: Performed By: #### C BC #### [facility] [address] [place] [address] Dr. Chi Melendrez EO # 0.0 103/ul Normal 0.0-0.7 [facility] Comment on above: Performed By: #### C BC #### [facility] [address] [place] [address] Dr. Chi Melendrez Eosinophils/100 WBC (Bld) 0.2 % Critically low 0.9-7.0 [facility] Comment on above: Performed By: #### C BC #### [facility] [address] [place] [address] Dr. Chi Melendrez Erythrocyte distribution width (RBC) [Ratio] 12.4 % Normal 11.0-15.0 [facility] Comment on above: Performed By: #### C BC #### [facility] [address] [place] [address] Dr. Chi Melendrez Hematocrit (Bld) [Volume fraction] 39.3 % Normal 36.0-48.0 [facility] Comment on above: Performed By: #### C BC #### [facility] [address] [place] [address] Dr. Chi Melendrez Hemoglobin (Bld) [Mass/Vol] 13.1 g/dL Normal 12.0-16.0 [facility] Comment on above: Performed By: #### C BC #### [facility] [address] [place] [address] Dr. Chi Melendrez IG # 0.03 10e3/ul Normal 0.00-0.03 [facility] Comment on above: Performed By: #### C BC #### [facility] [address] [place] [address] Dr. Chi Melendrez IG % 0.3 % Normal 0.0-0.5 [facility] Comment on above: Performed By: #### C BC #### [facility] [address] [place] [address] Dr. Chi Melendrez LYMPH # 1.3 103/ul Normal 1.2-3.8 [facility] Comment on above: Performed By: #### C BC #### [facility] [address] [place] [address] Dr. Chi Melendrez Lymphocytes/100 WBC (Bld) 10.5 % Critically low 20.5-60.0 [facility] Comment on above: Performed By: #### C BC #### [facility] [address] [place] [address] Dr. Chi Melendrez MANUAL DIFF REQ NO Normal [facility] Comment on above: Performed By: #### C BC #### [facility] [address] [place] [address] Dr. Chi Melendrez MCH (RBC) [Entitic mass] 29.8 pg Normal 26.7-34.0 [facility] Comment on above: Performed By: #### C BC #### [facility] [address] [place] [address] Dr. Chi Melendrez MCHC (RBC) [Mass/Vol] 33.3 g/dL Normal 29.9-35.2 [facility] Comment on above: Performed By: #### C BC #### [facility] [address] [place] [address] Dr. Chi Melendrez MCV (RBC) [Entitic vol] 89.5 fL Normal 81.0-99.0 [facility] Comment on above: Performed By: #### C BC #### [facility] [address] [place] [address] Dr. Chi Melendrez MONO # 0.6 103/ul Normal 0.3-0.8 [facility] Comment on above: Performed By: #### C BC #### [facility] [address] [place] [address] Dr. Chi Melendrez Monocytes/100 WBC (Bld) 4.6 % Normal 1.7-12.0 [facility] Comment on above: Performed By: #### C BC #### [facility] [address] [place] [address] Dr. Chi Melendrez NEUT # 10.0 103/ul Critically high 1.4-6.5 [facility] Comment on above: Performed By: #### C BC #### [facility] [address] [place] [address] Dr. Chi Melendrez Neutrophils/100 WBC (Bld) 84.1 % Critically high 43.0-75.0 [facility] Comment on above: Performed By: #### C BC #### [facility] [address] [place] [address] Dr. Chi Melendrez Platelet mean volume (Bld) [Entitic vol] 11.5 fL Normal 9.5-13.5 [facility] Comment on above: Performed By: #### C BC #### [facility] [address] [place] [address] Dr. Chi Melendrez PLT 268 103/ul Normal 150-450 [facility] Comment on above: Performed By: #### C BC #### [facility] [address] [place] [address] Dr. Chi Melendrez RBC 4.39 106/ul Normal 4.20-5.40 [facility] Comment on above: Performed By: #### C BC #### [facility] [address] [place] [address] Dr. Chi Melendrez WBC 11.9 103/ul Critically high 4.0-11.0 [facility] Comment on above: Performed By: #### C BC #### [facility] [address] [place] [address] Dr. Chi Melendrez LIPASEon 05-11-2022 Lipase [Catalytic activity/Vol] 101.0 U/L Normal 73.0-393.0 [facility] Comment on above: Performed By: #### C LORENE HYATT LIPA #### [facility] [address] [place] [address] Dr. Chi Melendrez PROF 14(COMP METB)on 022 Albumin [Mass/Vol] 4.2 g/dL Normal 3.4-5.0 [facility] Comment on above: Performed By: #### C MP, LORENE, LIPA #### [facility] [address] [address] [address] Chi Melendrez Albumin/Globulin [Mass ratio] 1.2 {ratio} Normal [facility] Comment on above: Performed By: #### C MP, LORENE, LIPA #### [facility] [address] [address] [address] Chi Melendrez ALP [Catalytic activity/Vol] 67 U/L Normal 46-116 [facility] Comment on above: Performed By: #### C MP, LORENE, LIPA #### [facility] [address] [address] [address] Chi Melendrez ALT [Catalytic activity/Vol] 17 U/L Normal 14-59 [facility] Comment on above: Performed By: #### C MP, LORENE, LIPA #### [facility] [address] [place] [address] Dr. Chi Melendrez Anion gap [Moles/Vol] 10.1 mmol/L Normal [facility] Comment on above: Performed By: #### C MP, LORENE, LIPA #### [facility] [address] [address] [address] Chi Melendrez AST [Catalytic activity/Vol] 13 U/L Critically low 15-37 [facility] Comment on above: Performed By: #### C MP, LORENE, LIPA #### [facility] [address] [address] [address] Chi Melendrez Bilirubin [Mass/Vol] 0.5 mg/dL Normal 0.2-1.0 [facility] Comment on above: Performed By: #### C MP, LORENE, LIPA #### [facility] [address] [address] [address] Chi Melendrez Calcium [Mass/Vol] 9.2 mg/dL Normal 8.5-10.1 [facility] Comment on above: Performed By: #### C MP, LORENE, LIPA #### [facility] [address] [address] [address] Chi Melendrez Chloride [Moles/Vol] 104 mmol/L Normal 98-107 [facility] Comment on above: Performed By: #### C MP, LORENE, LIPA #### [facility] [address] [address] [address] Chi Melendrez CO2 [Moles/Vol] 27.8 mmol/L Normal 21.0-32.0 [facility] Comment on above: Performed By: #### C MP, LORENE, LIPA #### [facility] [address] [address] [address] Chi Melendrez Creatinine [Mass/Vol] 0.75 mg/dL Normal 0.55-1.02 [facility] Comment on above: Performed By: #### C MP, LORENE, LIPA #### [facility] [address] [address] [address] Chi Melendrez EGFR-AF [place] >60 Normal >=60 [facility] Comment on above: Performed By: #### C MP, LORENE, LIPA #### [facility] [address] [address] [address] Chi Melendrez EGFR-NON AF [place] >60 Normal >=60 [facility] Comment on above: Performed By: #### C MP, LORENE, LIPA #### [facility] [address] [address] [address] Chi Melendrez Globulin (S) [Mass/Vol] 3.4 g/dL Normal [facility] Comment on above: Performed By: #### C MP, LORENE, LIPA #### [facility] [address] [address] [address] Chi Melendrez Glucose [Mass/Vol] 117 mg/dL Critically high 74-106 [facility] Comment on above: Performed By: #### C MP, LORENE, LIPA #### [facility] [address] [address] [address] Chi Melendrez Potassium [Moles/Vol] 3.9 mmol/L Normal 3.5-5.1 [facility] Comment on above: Performed By: #### C MP, LORENE, LIPA #### [facility] [address] [address] [address] Chi Melendrez Protein [Mass/Vol] 7.6 g/dL Normal 6.4-8.2 [facility] Comment on above: Performed By: #### C LORENE HYATT LIPA #### [facility] [address] [address] [address] Chi Melendrez Sodium [Moles/Vol] 138 mmol/L Normal 136-145 [facility] Comment on above: Performed By: #### C LORENE HYATT LIPA #### [facility] [address] [place] [address] Dr. Chi Melendrez Urea nitrogen [Mass/Vol] 16.0 mg/dL Normal 7.0-18.0 [facility] Comment on above: Performed By: #### C LORENE HYATT LIPA #### [facility] [address] [place] [address] Dr. Chi Melendrez Urea nitrogen/Creatini ne [Mass ratio] 21.3 mg/mg Normal [facility] Comment on above: Performed By: #### C LORENE HYATT LIPA #### [facility] [address] [place] [address] Dr. Chi Melendrez COVID Quick Testingon 2020 Result Negative [facility] Other Vital Signs Date Time Vital Sign Value Performing Clinician Facility 08-17-2024 13:26-0500 Body height 157.5 cm [facility] Work Phone: [facility] 08-17-2024 13:26-0500 Body mass index (BMI) [Ratio] 21.03 kg/m2 [facility] Work Phone: [facility] 08-17-2024 13:26-0500 Body weight 52.16 kg [facility] Work Phone: [facility] 08-17-2024 13:26-0500 Diastolic blood pressure 70 mm[Hg] [facility] Work Phone: [facility] 08-17-2024 13:26-0500 Systolic blood pressure 110 mm[Hg] [facility] Work Phone: [facility] 05-02-2021 14:00-0400 Body height 157.48 cm Neelam Singleton Other [facility] Other 05-02-2021 14:00-0400 Body mass index (BMI) [Ratio] 24.69 kg/m2 Neelam Singleton Other [facility] Other 05-02-2021 14:00-0400 Body temperature 98.7 [degF] Neelam Singleton Other [facility] Other 05-02-2021 14:00-0400 Body weight 61.24 kg Neelam Singleton Other [facility] Other 05-02-2021 14:00-0400 SaO2% (BldA) [Mass fraction] 97 % Neelam Singleton Other [facility] Other Encounters Encounter Date Encounter Type Care Provider Facility Start: 08-17-2024 End: 08-17-2024 Bamboo flowsheet Melva Mee DO Work Phone: [facility] Start: 08-17-2024 End: 08-17-2024 Bamboo flowsheet Melva Mee DO Work Phone: [facility] Start: 08-17-2024 End: 08-17-2024 ambulatory MELVA MEE Not Available Start: 08-17-2024 End: 08-17-2024 Office outpatient visit 15 minutes Melva Mee DO Work Phone: [facility] Comment on above: Intractable chronic migraine with aura and without status migrainosus (CMS/HCC); Hormone imbalance; Other migraine without status migrainosus, intractable (CMS/HCC) Start: 01-27-2024 End: 01-27-2024 ambulatory RASHAWN ANIRUDH Not Available Start: 12-02-2023 End: 12-02-2023 ambulatory RASHAWN ANIRUDH Not Available Start: 11-26-2023 End: 11-26-2023 ambulatory LORENE JOHNSON Not Available Start: 11-18-2023 End: 11-18-2023 ambulatory MD Heriberto Torres Work Phone: [facility] Work Phone: Start: 11-18-2023 End: 11-18-2023 Departed Referred MD Heriberto Torres Work Phone: [facility] Start: 10-17-2023 Preprocedural examin ation done Melva Mee DO Work Phone: [facility] Start: 10-17-2023 End: 10-17-2023 ambulatory MD Heriberto Torres Work Phone: [facility] Work Phone: Start: 10-17-2023 End: 10-17-2023 Departed Referred MD Heriberto Torres Work Phone: [facility] Start: 10-17-2023 End: 10-17-2023 ambulatory MELVA [...] Visit [facility] [address] [place] [id number] Mee, Melva, DO [address] [place] [address] [facility] Payers Date Payer Category Payer Self-pay 2023 Medicaid [facility] [id number] 1992 Unknown [id number] 1992 Unknown [id number] 1992 Unknown [id number] 1992 Unknown [id number] [id number] 1992 Unknown [id number] [id number] 1992 Unknown [id number] [id number] 1992 Unknown [id number] [id number] 1992 Unknown [id number] [id number] 1992 Unknown [id number] 1959 Medicaid [id number] Unknown [id number] Social History Date Type Detail Facility Unknown if ever smoked [facility] Other Start: 01-27-2024 Sex Assigned At N [employer] Other Start: 1990 Sex Assigned At Female F [facility] Start: 01-27-2024 [facility] Start: 01-27-2024 Tobacco use and exposure Smokeless tobacco non-user [facility] Start: 01-27-2024 End: 08-17-2024 Alcoholic beverage intake Ex-drinker (finding) [facility] Start: 01-27-2024 History of Social function [facility] Start: 12-02-2023 Tobacco Comment Smokeless nicotine [facility] Start: 01-27-2024 Alcohol Comment Rarely drink [facility] Start: 1990 Sex assigned at Not on file N [facility] History of Present illness Narrative 08-17-2024 Jesica Smith, TEST WORKER - 08/17/2024 1:10 PM EST Note Date & Type Note Facility 08-17-2024 History of Presen t illness Narrative Reason for Appointment: Patient ID: Claudia Meadows is a 34 y.o. female who presents for migraines and hormone imbalance Patient presents today for Consult appointment. MEDICATIONS No current outpatient medications ALLERGIES Allergies Allergen Reactions Bacitracin Hives Neomycin Hives Other Other Reaction(s): Dermatitis Wemrzpii-Sfkelkegknb-Gseojogtt Polymyxin B Hives PROBLEMS Active Ambulatory Problems [...] nursing note reviewed. Exam conducted with a rn mental health present. Vitals: Estimated body mass index is [...] Patient care instructions given in writting by [facility] Care At Home document. [facility] Other Evaluation note Note Date & Type Note Facility Evaluation note No assessment information availa [facility] Work Phone: Evaluation note Note Date & Type Note Facility Evaluation note Diagnosis Intractable chronic migraine with aura and without status migrainosus (CMS/HCC) Hormone imbalance Other migraine without status migrainosus, intractable (CMS/HCC) documented in this encounter [facility] History general Narrative - Reported Note Date & Type Note Facility History general Narrative - Reported Type Medical History Childbirth X1 Surgical History tonsillectomy [facility] [employer] Other Summary Purpose Family History No Family [...] CREATED AUTHOR AUTHOR'S ORGANIZ ATION 01/29/2024 [facility] DATE CREATED AUTHOR AUTHOR'S ORGANIZ ATION 08/20/2024 [facility] Care Teams (unrecognized sec tion and content) Team Status: Active Member Role Status Dates Heriberto Torres MD Primary Care Provider Active Team Status: Inactive Member Role Status Dates Heriberto Torres MD Primary Care Provider Active Start: October 17, 2023 End: October 17, 2023 Melva Caban Attending Provider Active Start: [facility] 2023 End: October 17, 2023 Team Status: Inactive Member Role Status Dates Heriberto Torres MD Primary Care Provider Active Start: November 18, 2023 End: November 18, 2023 Melva Caban Attending Provider Active Start: 2023 End: November 18, 2023 Technical Supervisor Relationship Specialty Start Date End Date Heriberto Torres MD [address] [place] [address] PCP - [facility] Medicine 09/03/23 Technical Supervisor Relationship Specialty Start Date End Date Heriberto Torres MD [address] [place] [address] PCP - General [facility] Medicine 09/03/23 Goals (unrecognized section and content) [...] BE BASED ON THE PRIMARY CLINICAL RECORDS. [facility] [employer] [facility]. provides no warranty or guarantee of the accuracy or completeness of information in this document.
[2024-10-12 12:08] LABS: Age Gdln ACOG Testing Note (.); HPV Aptima Negative (Negative); IGP, Aptima HPV, rfx 16/18,45 Note (.)
== END 2024-10-06 15:43 | disposition home or self-care (01) ==
LOC: LAB 15:42
PROVIDERS: PCP Family Medicine; Visit Provider Obstetrics & Gynecology
DX: Z01.419 Encounter for gynecological examination (general) (routine) without abnormal findings (principal)
CPT/HCPCS: 87624; 88175